=== PATIENT | male | born 1960 | race African-American/Black ===

== ENCOUNTER 2018-03-24 19:17 | Inpatient (IN) | payer OTHER ==
[~2018-03-24] VITALS: Ht 180.3 cm; Wt 70.1 kg
[~2018-03-24 19:17] MED LIST: ACET325T9 PO; AMLO10TA4 PO; FLUO20CA8 PO; FOLI1TAB16 PO; LABE200T24 PO; NAPR-514 PO; NAPR375T5 PO; OLAN1CAP9 PO; OLAN20TA3 PO; THIA100T57 PO
[2018-03-24] MEDS ORDERED: MULTIVIT INFUSN,ADULT 4,VIT K 10 ML, THIAMINE 100 MG, FOLIC ACID 1 MG in IV NORMAL SALI... IV ONE (20:00)
[2018-03-24 20:29] LABS: BASO % 1 % (0-3); EOS % 1 % (0-3); HEMATOCRIT 36.3 % (39.0-53.0); HEMOGLOBIN 12.7 g/dL (13.0-17.5); LYMPH # 1.6 x10^3/uL (1.0-4.8); LYMPH % 22 % (24-48); MEAN CORPUSCULAR HEMOGLOBIN 36 pg (25-35); MEAN CORPUSCULAR HGB CONC 35 g/dL (31-37); MEAN CORPUSCULAR VOLUME 102 fL (79-100); MONO # 0.5 x10^3/uL (0.0-1.1); MONO % 6 % (0-9); NEUT # 5.1 x10^3uL (1.8-7.7); NEUT % 71 % (31-73); PLATELET COUNT 353 x10^3/uL (140-400); RED BLOOD COUNT 3.56 x10^6/uL (4.30-5.70); RED CELL DISTRIBUTION WIDTH 13.2 % (11.5-14.5); WHITE BLOOD COUNT 7.2 x10^3/uL (4.0-11.0)
[2018-03-24 21:58] LABS: CALCIUM 9.3 mg/dL (8.5-10.1); CREATININE 1.3 mg/dL (0.7-1.3); GFR 69.1; POTASSIUM 4.5 mmol/L (3.5-5.1)
[2018-03-24 22:05] LABS: ALBUMIN 3.3 g/dL (3.4-5.0); ALBUMIN/GLOBULIN RATIO 0.9 (1.0-1.7); MAGNESIUM 1.6 mg/dL (1.8-2.4); TOTAL BILIRUBIN 0.4 mg/dL (0.2-1.0); TOTAL PROTEIN 7.1 g/dL (6.4-8.2)
[2018-03-24 23:42] LABS: BILIRUBIN,URINE NEGATIVE (NEG); CLARITY,URINE CLEAR; COLOR,URINE YELLOW; NITRITE,URINE NEGATIVE (NEG); PH,URINE 7.5; PROTEIN,URINE NEGATIVE (NEG-TRACE)
--- NOTE | 2018-03-24 23:47 | PHYS DOC ---
Past Medical History Past Medical History: COPD, Depression, Hypertension Additional Past Medical Histor: TBI Past Surgical History: No Surgical History, Other Additional Past Surgical Histo: BRAIN SURGERY Alcohol Use: Heavy Drug Use: None, Cocaine, Marijuana, Other Adult General Chief Complaint Chief Complaint: ALCOHOL INTOXICATION HPI HPI Patient is a 57 year old M who presents via EMS. EMS reports patient was found passed out in front of the liquor store. He has vomit on his shirt. No able to answer questions at this time. He was able to move from the cot onto the ER bed independently. Review of Systems Review of Systems Respiratory: Denies cough or shortness of breath [] Cardiovascular: Mild chest pain GI: Denies abdominal pain, nausea, vomiting Musculoskeletal: Denies back pain or joint pain [] Integument: Denies rash or skin lesions [] Neurologic: Denies headache, focal weakness or sensory changes [] All other systems were reviewed and found to be within normal limits, except as documented in this note. Current Medications Current Medications Current Medications Medications (Trade) Dose Ordered Sig/Beverly Start Time Stop Time Status Last Admin Dose Admin Multivitamins 10 ml/Thiamine HCl 100 mg/Folic Acid 1 mg/Sodium Chloride 1,011.2 ml @ 1,000 mls/ hr 1X ONCE 03/24/18 20:00 03/24/18 21:00 DC 03/24/18 20:05 1,000 MLS/HR Allergies Allergies Allergies Coded Allergies Type Severity Reaction Last Updated Verified No Known Drug Allergies 12/24/14 No Physical Exam Physical Exam Constitutional: Well developed, well nourished, no acute distress, non-toxic appearance. [] HENT: Normocephalic, atraumatic Eyes: PERRLA, EOMI, conjunctiva normal, no discharge. [] Neck: Normal range of motion, no tenderness, supple, no stridor. [] Cardiovascular:Heart rate regular rhythm, no murmur [] Lungs & Thorax: Bilateral breath sounds clear to auscultation [] Skin: Warm, dry, no erythema, no rash. [] Neurologic: Alert and oriented X 3, normal motor function, normal sensory function, no focal deficits noted. [] Psychologic: Affect normal, judgement normal, mood normal. [] Current Patient Data Vital Signs Vital Signs Date Time Temp Pulse Resp B/P (MAP) Pulse Ox O2 Delivery O2 Flow Rate FiO2 03/24/18 19:30 97.9 90 20 104/66 (79) 96 Room Air 97.9 Lab Values Laboratory Tests Test 03/24/18 20:15 03/24/18 20:45 03/24/18 21:20 03/24/18 23:30 White Blood Count 7.2 x10^3/uL (4.0-11.0) Red Blood Count 3.56 x10^6/uL (4.30-5.70) L Hemoglobin 12.7 g/dL (13.0-17.5) L Hematocrit 36.3 % (39.0-53.0) L Mean Corpuscular Volume 102 fL (79-100) H Mean Corpuscular Hemoglobin 36 pg (25-35) H Mean Corpuscular Hemoglobin Concent 35 g/dL (31-37) Red Cell Distribution Width 13.2 % (11.5-14.5) Platelet Count 353 x10^3/uL (140-400) Neutrophils (%) (Auto) 71 % (31-73) Lymphocytes (%) (Auto) 22 % (24-48) L Monocytes (%) (Auto) 6 % (0-9) Eosinophils (%) (Auto) 1 % (0-3) Basophils (%) (Auto) 1 % (0-3) Neutrophils # (Auto) 5.1 x10^3uL (1.8-7.7) Lymphocytes # (Auto) 1.6 x10^3/uL (1.0-4.8) Monocytes # (Auto) 0.5 x10^3/uL (0.0-1.1) Eosinophils # (Auto) 0.0 x10^3/uL (0.0-0.7) Basophils # (Auto) 0.0 x10^3/uL (0.0-0.2) Lactic Acid Level 2.6 mmol/L (0.4-2.0) H Sodium Level 139 mmol/L (136-145) Potassium Level 4.5 mmol/L (3.5-5.1) Chloride Level 103 mmol/L (98-107) Carbon Dioxide Level 31 mmol/L (21-32) Anion Gap 5 (6-14) L Blood Urea Nitrogen 15 mg/dL (8-26) Creatinine 1.3 mg/dL (0.7-1.3) Estimated GFR (Cockcroft-Gault) 69.1 BUN/Creatinine Ratio 12 (6-20) Glucose Level 136 mg/dL (70-99) H Calcium Level 9.3 mg/dL (8.5-10.1) Magnesium Level 1.6 mg/dL (1.8-2.4) L Total Bilirubin 0.4 mg/dL (0.2-1.0) Aspartate Amino Transferase (AST) 48 U/L (15-37) H Alanine Aminotransferase (ALT) 73 U/L (16-63) H Alkaline Phosphatase 53 U/L (46-116) Total Protein 7.1 g/dL (6.4-8.2) Albumin 3.3 g/dL (3.4-5.0) L Albumin/Globulin Ratio 0.9 (1.0-1.7) L Ethyl Alcohol Level < 10 mg/dL (0-10) Urine Collection Type Unknown Urine Color Yellow Urine Clarity Clear Urine pH 7.5 Urine Specific [place] 1.010 Urine Protein Negative mg/dL (NEG-TRACE) Urine Glucose (UA) Negative mg/dL (NEG) Urine Ketones (Stick) Negative mg/dL (NEG) Urine Blood Negative (NEG) Urine Nitrite Negative (NEG) Urine Bilirubin Negative (NEG) Urine Urobilinogen Dipstick 1.0 mg/dL (0.2 mg/dL) Urine Leukocyte Esterase Negative (NEG) Urine RBC 0 /HPF (0-2) Urine WBC Rare /HPF (0-4) Urine Squamous Epithelial Cells Occ /LPF Urine Bacteria 0 /HPF (0-FEW) Urine Mucus Slight /LPF Urine Opiates Screen Neg (NEG) Urine Methadone Screen Neg (NEG) Urine Barbiturates Neg (NEG) Urine Phencyclidine Screen Neg (NEG) Urine Amphetamine/Methamphetamine Neg (NEG) Urine Benzodiazepines Screen Neg (NEG) Urine Cocaine Screen Neg (NEG) Urine Cannabinoids Screen Neg (NEG) Urine Ethyl Alcohol Neg (NEG) Laboratory Tests 03/24/18 20:15 Laboratory Tests 03/24/18 21:20 EKG EKG NSR at 86bpm with occasional PVCs, NO ST elevation, Radiology/Procedures Radiology/Procedures PATIENT: CONY WHITTINGTON EACCOUNT: [id number]#: [id number] : 1960 LOCATION: ER AGE: 57 SEX: M EXAM STATUS: REG ER ORD. PHYSICIAN: NELLIE SILVERMAN APRN REASON: altered mental status PROCEDURE: CT HEAD WO CONTRAST CT Head W/O Contrast: History: AMS ETOH PT STATES PREV BRAIN ANEURYSM PREV SENT Comparison: none Axial images were obtained without contrast. There is moderate diffuse atrophy. There is no mass effect, extraaxial fluid collections or hydrocephalus. There is no focal loss of cline-white matter distinction to suggest acute ischemia, i.e. stroke. There is a depressed fracture of the left zygomatic arch. There is multiple old wan holes bilaterally. Impression: 1. Moderate diffuse cerebral and cerebellar atrophy is advanced for the patient's age but was seen previously. 2. Depressed fracture of the zygomatic arch on the left was not seen previously and appears acute. RS Compliance Statement: One or more of the following individualized dose reduction techniques were utilized for this examination: 1. Automated exposure control 2. Adjustment of the mA and/or kV according to patient size 3. Use of iterative reconstruction technique Electronically signed by: David Corcoran III, MD (03/25/2018 12:00 AM) [facility] DICTATED and SIGNED BY: DAVID CORCORAN III, MD DATE: 03/24/18 9783 [] CXR -- no acute findings Course & Med Decision Making Course & Med Decision Making Pertinent Labs and Imaging studies reviewed. (See chart for details) d/w Dr. Lei, accepts admission. Plan: admit Dragon Disclaimer Dragon Disclaimer This electronic medical record was generated, in whole or in part, using a voice recognition dictation system. Departure Departure Referrals: NO PCP (PCP) NELLIE SILVERMAN APRN Mar 24, 2018 23:47 GUILLAUME ESCOTO DO Mar 25, 2018 01:06
[2018-03-24 23:48] LABS: BARBITURATES NEG (NEG); BENZODIAZEPINES NEG (NEG); CANNABINOIDS NEG (NEG); COCAINE NEG (NEG); METHADONE NEG (NEG); OPIATES NEG (NEG); PHENCYCLIDINE NEG (NEG)
[2018-03-24 23:49] LABS: RBC,URINE 0 /HPF (0-2); WBC,URINE RARE /HPF (0-4)
[2018-03-24 23:50] LABS: BACTERIA,URINE 0 /HPF (0-FEW); SQUAMOUS EPITHELIAL CELL,UR OCC /LPF
[2018-03-24 23:51] LABS: AMPHETAMINE/METHAMPHETAMINE NEG (NEG)
[2018-03-25] VITALS (7 sets, daily range): BP systolic 133–189; BP diastolic 66–94
--- NOTE | 2018-03-25 00:04 | RAD ---
CT Head W/O Contrast: History: AMS ETOH PT STATES PREV BRAIN ANEURYSM PREV SENT Comparison: none Axial images were obtained without contrast. There is moderate diffuse atrophy. There is no mass effect, extraaxial fluid collections or hydrocephalus. There is no focal loss of cline-white matter distinction to suggest acute ischemia, i.e. stroke. There is a depressed fracture of the left zygomatic arch. There is multiple old wan holes bilaterally. Impression: 1. Moderate diffuse cerebral and cerebellar atrophy is advanced for the patient's age but was seen previously. 2. Depressed fracture of the zygomatic arch on the left was not seen previously and appears acute. PQRS Compliance Statement: One or more of the following individualized dose reduction techniques were utilized for this examination: 1. Automated exposure control 2. Adjustment of the mA and/or kV according to patient size 3. Use of iterative reconstruction technique Electronically signed by: Sam Prado III, MD (03/25/2018 12:00 AM) [facility]
[2018-03-25] MEDS ORDERED: ONDANSETRON PF 4 MG/2 ML VIAL. IV PRN (00:30)
[2018-03-25] MEDS ORDERED: TRAZ-86 PO (02:01)
[2018-03-25] MEDS ORDERED: NICO1PAT21 TP (02:02)
--- NOTE | 2018-03-25 07:07 | EKG ---
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
--- NOTE | 2018-03-25 07:47 | RAD ---
Indication:soa TECHNIQUE:Portable AP chest X-ray COMPARISON:12/24/2014 FINDINGS: Heart is normal in size. Lungs are clear. No pneumothorax or pleural effusion. Right shoulder joint arthritis. Otherwise, visualized bony thorax within normal limits. IMPRESSION: No acute cardiopulmonary process. Electronically signed by: Kory Giron DO (03/25/2018 7:44 AM) [facility]
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
--- NOTE | 2018-03-25 11:34 | PDOC2 ---
CONSULT Date of Consult Date of Consult DATE: 03/25/18 TIME: 11:33 Reason for Consult Reason for Consult: Syncope Referring Physician Referring Physician: Dr. Davis Identification/Chief Complaint Chief Complaint Syncope Source Source: Patient History of Present Illness Reason for Visit: 57-year-old male with history of heavy alcohol abuse apparently was found passed out with vomit undershirt outside liquor store. He complained of intermittent episodes of atypical retrosternal chest pain that appears to be GI etiology. He denied any orthopnea/PND, or palpitations. Past Medical History Cardiovascular: HTN Pulmonary: COPD CENTRAL NERVOUS SYSTEM: Other GI: No pertinent hx Heme/Onc: No pertinent hx Hepatobiliary: Hep A/B/C Psych: Anxiety, Depression Musculoskeletal: Osteoarthritis Rheumatologic: No pertinent hx Infectious disease: No pertinent hx Renal/: No pertinent hx Endocrine: No pertinent hx Past Surgical History Past Surgical History: Other Family History Family History: Coronary Artery Disease Social History ALCOHOL: heavy Drugs: Cocaine Lives: Alone Domestic Violence: Neg Current Problem List Problem List Problems Medical Problems: (1) Altered mental status Status: Acute Current Medications Current Medications Current Medications Multivitamins 10 ml/Thiamine HCl 100 mg/Folic Acid 1 mg/Sodium Chloride 1,011.2 ml @ 1,000 mls/ hr 1X ONCE IV Last administered on 03/24/18at 20:05; Start at 20:00; Stop 03/24/18 at 21:00; Status DC Ondansetron HCl (Zofran) 4 mg PRN Q8HRS PRN IV NAUSEA/VOMITING 1ST CHOICE; Start 03/25/18 at 00:30; Stop 03/26/18 at 00:29 Acetaminophen (Tylenol) 650 mg PRN Q4HRS PRN PO FEVER; Start 03/25/18 at 00:30 ; Stop 03/26/18 at 00:29 Amlodipine Besylate (Norvasc) 10 mg DAILY PO ; Start 03/25/18 at 11:30 Fluoxetine HCl (PROzac) 20 mg DAILY PO ; Start 03/25/18 at 11:30 Folic Acid (Folic Acid) 1 mg DAILY PO ; Start 03/25/18 at 11:30 Trazodone HCl (Desyrel) 100 mg PRN QHS PRN PO INSOMNIA; Start 03/25/18 at 11:15 Labetalol HCl (Trandate) 200 mg BID PO ; Start 03/25/18 at 11:30 Naproxen (Naprosyn) 500 mg PRN BID PRN PO INFLAMMATION/PAIN; Start 03/25/18 at 11:30 Nicotine (Nicoderm Cq 21mg) 1 patch DAILY TD ; Start 03/25/18 at 11:30 Olanzapine (ZyPREXA) 20 mg QHS PO ; Start 03/25/18 at 21:00 Thiamine Mononitrate (Vitamin B-1) 100 mg DAILY PO ; Start 03/25/18 at 11:30 Active Scripts Active Naproxen 500 Mg Tablet 1 Tab PO BID PRN Vitamin B-1 (Thiamine Hcl) 100 Mg Tablet 100 Mg PO DAILY Trandate (Labetalol Hcl) 200 Mg Tablet 200 Mg PO BID 30 Days Folic Acid 1 Mg Tablet 1 Mg PO DAILY Norvasc (Amlodipine Besylate) 10 Mg Tablet 10 Mg PO DAILY 30 Days Reported NICODERM CQ 21mg (Nicotine) 1 Each Patch.td24 1 Patch TP DAILY Trazodone Hcl 100 Mg Tablet 1 Tab PO PRN QHS PRN Zyprexa (Olanzapine) 20 Mg Tablet 1 Tab PO QHS Fluoxetine Hcl 20 Mg Capsule 1 Cap PO DAILY Symbyax 6-50 Mg Capsule (Olanzapine/Fluoxetine Hcl) 1 Each Capsule 1 Each PO Allergies Allergies: Coded Allergies: No Known Drug Allergies (Unverified , 12/24/14) ROS PSYCHOLOGICAL ROS: No: Hallucinations Eyes: No Loss of vision HEENT: No: Epistaxis Respiratory: No: Hemoptysis Cardiovascular: yes Chest Pain Gastrointestinal: No Diarrhea Genitourinary: No Hematuria Neurological: No Seizures Skin: No Rash Physical Exam General: Alert, Oriented X3 HEENT: Atraumatic, PERRLA Lungs: Clear to auscultation Heart: Regular rate Abdomen: Soft Extremities: No edema Psych/Mental Status: Mood NL Vitals VITALS Vital Signs Date Time Temp Pulse Resp B/P (MAP) Pulse Ox O2 Delivery O2 Flow Rate FiO2 03/25/18 07:00 98.4 95 17 155/84 (107) 95 Room Air 98.4 Labs Labs Laboratory Tests Test 03/24/18 20:15 03/24/18 20:45 03/24/18 21:20 03/24/18 23:30 White Blood Count 7.2 x10^3/uL (4.0-11.0) Red Blood Count 3.56 x10^6/uL (4.30-5.70) Hemoglobin 12.7 g/dL (13.0-17.5) Hematocrit 36.3 % (39.0-53.0) Mean Corpuscular Volume 102 fL (79-100) Mean Corpuscular Hemoglobin 36 pg (25-35) Mean Corpuscular Hemoglobin Concent 35 g/dL (31-37) Red Cell Distribution Width 13.2 % (11.5-14.5) Platelet Count 353 x10^3/uL (140-400) Neutrophils (%) (Auto) 71 % (31-73) Lymphocytes (%) (Auto) 22 % (24-48) Monocytes (%) (Auto) 6 % (0-9) Eosinophils (%) (Auto) 1 % (0-3) Basophils (%) (Auto) 1 % (0-3) Neutrophils # (Auto) 5.1 x10^3uL (1.8-7.7) Lymphocytes # (Auto) 1.6 x10^3/uL (1.0-4.8) Monocytes # (Auto) 0.5 x10^3/uL (0.0-1.1) Eosinophils # (Auto) 0.0 x10^3/uL (0.0-0.7) Basophils # (Auto) 0.0 x10^3/uL (0.0-0.2) Lactic Acid Level 2.6 mmol/L (0.4-2.0) Sodium Level 139 mmol/L (136-145) Potassium Level 4.5 mmol/L (3.5-5.1) Chloride Level 103 mmol/L (98-107) Carbon Dioxide Level 31 mmol/L (21-32) Anion Gap 5 (6-14) Blood Urea Nitrogen 15 mg/dL (8-26) Creatinine 1.3 mg/dL (0.7-1.3) Estimated GFR (Cockcroft-Gault) 69.1 BUN/Creatinine Ratio 12 (6-20) Glucose Level 136 mg/dL (70-99) Calcium Level 9.3 mg/dL (8.5-10.1) Magnesium Level 1.6 mg/dL (1.8-2.4) Total Bilirubin 0.4 mg/dL (0.2-1.0) Aspartate Amino Transf (AST/SGOT) 48 U/L (15-37) Alanine Aminotransferase (ALT/SGPT) 73 U/L (16-63) Alkaline Phosphatase 53 U/L (46-116) Total Protein 7.1 g/dL (6.4-8.2) Albumin 3.3 g/dL (3.4-5.0) Albumin/Globulin Ratio 0.9 (1.0-1.7) Ethyl Alcohol Level < 10 mg/dL (0-10) Urine Collection Type Unknown Urine Color Yellow Urine Clarity Clear Urine pH 7.5 Urine Specific [place] 1.010 Urine Protein Negative mg/dL (NEG-TRACE) Urine Glucose (UA) Negative mg/dL (NEG) Urine Ketones (Stick) Negative mg/dL (NEG) Urine Blood Negative (NEG) Urine Nitrite Negative (NEG) Urine Bilirubin Negative (NEG) Urine Urobilinogen Dipstick 1.0 mg/dL (0.2 mg/dL) Urine Leukocyte Esterase Negative (NEG) Urine RBC 0 /HPF (0-2) Urine WBC Rare /HPF (0-4) Urine Squamous Epithelial Cells Occ /LPF Urine Bacteria 0 /HPF (0-FEW) Urine Mucus Slight /LPF Urine Opiates Screen Neg (NEG) Urine Methadone Screen Neg (NEG) Urine Barbiturates Neg (NEG) Urine Phencyclidine Screen Neg (NEG) Urine Amphetamine/Methamphetamine Neg (NEG) Urine Benzodiazepines Screen Neg (NEG) Urine Cocaine Screen Neg (NEG) Urine Cannabinoids Screen Neg (NEG) Urine Ethyl Alcohol Neg (NEG) Laboratory Tests Test 03/24/18 20:15 03/24/18 20:45 03/24/18 21:20 03/24/18 23:30 White Blood Count 7.2 x10^3/uL (4.0-11.0) Red Blood Count 3.56 x10^6/uL (4.30-5.70) Hemoglobin 12.7 g/dL (13.0-17.5) Hematocrit 36.3 % (39.0-53.0) Mean Corpuscular Volume 102 fL (79-100) Mean Corpuscular Hemoglobin 36 pg (25-35) Mean Corpuscular Hemoglobin Concent 35 g/dL (31-37) Red Cell Distribution Width 13.2 % (11.5-14.5) Platelet Count 353 x10^3/uL (140-400) Neutrophils (%) (Auto) 71 % (31-73) Lymphocytes (%) (Auto) 22 % (24-48) Monocytes (%) (Auto) 6 % (0-9) Eosinophils (%) (Auto) 1 % (0-3) Basophils (%) (Auto) 1 % (0-3) Neutrophils # (Auto) 5.1 x10^3uL (1.8-7.7) Lymphocytes # (Auto) 1.6 x10^3/uL (1.0-4.8) Monocytes # (Auto) 0.5 x10^3/uL (0.0-1.1) Eosinophils # (Auto) 0.0 x10^3/uL (0.0-0.7) Basophils # (Auto) 0.0 x10^3/uL (0.0-0.2) Lactic Acid Level 2.6 mmol/L (0.4-2.0) Sodium Level 139 mmol/L (136-145) Potassium Level 4.5 mmol/L (3.5-5.1) Chloride Level 103 mmol/L (98-107) Carbon Dioxide Level 31 mmol/L (21-32) Anion Gap 5 (6-14) Blood Urea Nitrogen 15 mg/dL (8-26) Creatinine 1.3 mg/dL (0.7-1.3) Estimated GFR (Cockcroft-Gault) 69.1 BUN/Creatinine Ratio 12 (6-20) Glucose Level 136 mg/dL (70-99) Calcium Level 9.3 mg/dL (8.5-10.1) Magnesium Level 1.6 mg/dL (1.8-2.4) Total Bilirubin 0.4 mg/dL (0.2-1.0) Aspartate Amino Transf (AST/SGOT) 48 U/L (15-37) Alanine Aminotransferase (ALT/SGPT) 73 U/L (16-63) Alkaline Phosphatase 53 U/L (46-116) Total Protein 7.1 g/dL (6.4-8.2) Albumin 3.3 g/dL (3.4-5.0) Albumin/Globulin Ratio 0.9 (1.0-1.7) Ethyl Alcohol Level < 10 mg/dL (0-10) Urine Collection Type Unknown Urine Color Yellow Urine Clarity Clear Urine pH 7.5 Urine Specific [place] 1.010 Urine Protein Negative mg/dL (NEG-TRACE) Urine Glucose (UA) Negative mg/dL (NEG) Urine Ketones (Stick) Negative mg/dL (NEG) Urine Blood Negative (NEG) Urine Nitrite Negative (NEG) Urine Bilirubin Negative (NEG) Urine Urobilinogen Dipstick 1.0 mg/dL (0.2 mg/dL) Urine Leukocyte Esterase Negative (NEG) Urine RBC 0 /HPF (0-2) Urine WBC Rare /HPF (0-4) Urine Squamous Epithelial Cells Occ /LPF Urine Bacteria 0 /HPF (0-FEW) Urine Mucus Slight /LPF Urine Opiates Screen Neg (NEG) Urine Methadone Screen Neg (NEG) Urine Barbiturates Neg (NEG) Urine Phencyclidine Screen Neg (NEG) Urine Amphetamine/Methamphetamine Neg (NEG) Urine Benzodiazepines Screen Neg (NEG) Urine Cocaine Screen Neg (NEG) Urine Cannabinoids Screen Neg (NEG) Urine Ethyl Alcohol Neg (NEG) Assessment/Plan Assessment/Plan 1. Syncope most probably alcohol blackout. Telemetry did not show any significant arrhythmias. 2-D echo on 2014 showed normal LV systolic function. Plan for repeating 2-D echocardiogram as an outpatient to rule out structural abnormalities. 2. Chest pain with atypical features, most probably GI etiology. Myocardial infarction ruled out. We will consider ischemic evaluation as an outpatient. 3. Alcohol abuse/intoxication on presentation. Monitor for withdrawal 4. Hypertension: Better controlled since admission 5. Hypomagnesemia: Replace Thank you for your consultation JULISSA PASTOR MD Mar 25, 2018 11:34
[2018-03-25] MEDS ORDERED: IV NORMAL SALINE 1000ML BAG 1,000 ML IV ONE (12:00)
[2018-03-25] MEDS: FOLIC ACID 1 MG TABLET. PO SCH (12:04)
[2018-03-25] MEDS: LABETALOL HCL 200 MG TABLET PO SCH ×2 (12:05→20:43)
[2018-03-25] MEDS: THIAMINE 100 MG TABLET. PO SCH (12:06)
[2018-03-25] MEDS: amLODIPine BESYLATE 10 MG TABLET PO SCH (12:06)
[2018-03-25] MEDS: MAGNESIUM OXIDE 400 MG TABLET PO SCH ×2 (12:06→20:42)
[2018-03-25] MEDS: FLUoxetine HCL 20 MG CAPSULE PO SCH (12:06)
[2018-03-25] MEDS: PANTOPRAZOLE 40 MG TABLET.DR. PO SCH (12:06)
[2018-03-25] MEDS: ACETAMINOPHEN 325 MG TABLET. PO PRN ×2 (12:07→18:54)
[2018-03-25] MEDS: NICOTINE 21MG PATCH. TD SCH (12:07)
[2018-03-25] MEDS: LORazepam 1 MG TABLET PO SCH ×2 (17:41→23:30)
[2018-03-25] MEDS: OLANZapine 5 MG TABLET PO SCH (20:42)
[2018-03-26 03:30] VITALS: BP 126/79
[2018-03-26] MEDS: LORazepam 1 MG TABLET PO SCH ×4 (05:43→23:38)
[2018-03-26 07:00] VITALS: BP 147/87
[2018-03-26 07:02] LABS: HEMATOCRIT 36.3 % (39.0-53.0); HEMOGLOBIN 12.5 g/dL (13.0-17.5); RED BLOOD COUNT 3.53 x10^6/uL (4.30-5.70); RED CELL DISTRIBUTION WIDTH 13.7 % (11.5-14.5); WHITE BLOOD COUNT 8.4 x10^3/uL (4.0-11.0)
[2018-03-26 08:01] LABS: ALBUMIN 3.2 g/dL (3.4-5.0); ALBUMIN/GLOBULIN RATIO 0.8 (1.0-1.7); CALCIUM 8.8 mg/dL (8.5-10.1); GFR 93.5; POTASSIUM 3.6 mmol/L (3.5-5.1); TOTAL BILIRUBIN 0.5 mg/dL (0.2-1.0)
[2018-03-26] MEDS: NICOTINE 21MG PATCH. TD SCH (09:27)
[2018-03-26] MEDS: MAGNESIUM OXIDE 400 MG TABLET PO SCH ×2 (09:27→20:59)
[2018-03-26] MEDS: PANTOPRAZOLE 40 MG TABLET.DR. PO SCH (09:27)
[2018-03-26] MEDS: FLUoxetine HCL 20 MG CAPSULE PO SCH (09:27)
[2018-03-26] MEDS: LABETALOL HCL 200 MG TABLET PO SCH ×2 (09:27→21:00)
[2018-03-26] MEDS: THIAMINE 100 MG TABLET. PO SCH (09:27)
[2018-03-26] MEDS: amLODIPine BESYLATE 10 MG TABLET PO SCH (09:28)
[2018-03-26] MEDS: FOLIC ACID 1 MG TABLET. PO SCH (09:28)
[2018-03-26 11:00] VITALS: BP 107/68
--- NOTE | 2018-03-26 12:21 | PDOC ---
PROGRESS NOTES Subjective Subjective Feels better today. Objective Objective Vital Signs Date Time Temp Pulse Resp B/P (MAP) Pulse Ox O2 Delivery O2 Flow Rate FiO2 03/26/18 09:28 76 147/87 03/26/18 07:00 97.7 18 96 Room Air 97.7 Intake and Output 03/26/18 07:00 Intake Total 1020 ml Output Total 2050 ml Balance -1030 ml Intake Oral 1020 ml Output Urine Total 1500 ml Urine/Stool Mix 550 ml Physical Exam Abdomen: Soft Heart: Regular rate Extremities: No edema General: Alert, Oriented X3 HEENT: Atraumatic, PERRLA Lungs: Clear to auscultation MUSCULOSKELETAL: No joint tenderness Psych/Mental Status: Mood NL Assessment Assessment 1. Syncope most probably alcohol blackout. Telemetry did not show any significant arrhythmias. 2-D echo on 2014 showed normal LV systolic function. Plan for repeating 2-D echocardiogram as an outpatient to rule out structural abnormalities. 2. Chest pain with atypical features, most probably GI etiology. Myocardial infarction ruled out. We will consider ischemic evaluation as an outpatient. 3. Alcohol abuse/intoxication on presentation. Monitor for withdrawal 4. Hypertension: Better controlled since admission 5. Hypomagnesemia: Replaced Plan Plan of Care Problems Medical Problems: (1) Altered mental status Status: Acute Comment Review of Relevant I have reviewed the following items robby (where applicable) has been applied. Labs Laboratory Tests Test 03/26/18 05:35 03/26/18 06:05 Erythrocyte Sedimentation Rate 5 (0-15) Sodium Level 142 mmol/L (136-145) Potassium Level 3.6 mmol/L (3.5-5.1) Chloride Level 106 mmol/L (98-107) Carbon Dioxide Level 25 mmol/L (21-32) Anion Gap 11 (6-14) Blood Urea Nitrogen 12 mg/dL (8-26) Creatinine 1.0 mg/dL (0.7-1.3) Estimated GFR (Cockcroft-Gault) 93.5 BUN/Creatinine Ratio 12 (6-20) Glucose Level 93 mg/dL (70-99) Calcium Level 8.8 mg/dL (8.5-10.1) Total Bilirubin 0.5 mg/dL (0.2-1.0) Aspartate Amino Transf (AST/SGOT) 52 U/L (15-37) Alanine Aminotransferase (ALT/SGPT) 84 U/L (16-63) Alkaline Phosphatase 60 U/L (46-116) Total Protein 7.0 g/dL (6.4-8.2) Albumin 3.2 g/dL (3.4-5.0) Albumin/Globulin Ratio 0.8 (1.0-1.7) White Blood Count 8.4 x10^3/uL (4.0-11.0) Red Blood Count 3.53 x10^6/uL (4.30-5.70) Hemoglobin 12.5 g/dL (13.0-17.5) Hematocrit 36.3 % (39.0-53.0) Mean Corpuscular Volume 103 fL (79-100) Mean Corpuscular Hemoglobin 35 pg (25-35) Mean Corpuscular Hemoglobin Concent 34 g/dL (31-37) Red Cell Distribution Width 13.7 % (11.5-14.5) Platelet Count 356 x10^3/uL (140-400) Medications Current Medications Lorazepam (Ativan) 2 mg Q6H PO Last administered on 03/26/18at 11:55; Start at 17:30; Stop 03/26/18 at 23:31 Magnesium Oxide (Magnesium Oxide) 400 mg BID PO Last administered on 03/26/18 09:27; Start 03/25/18 at 12:30 Olanzapine (ZyPREXA) 20 mg QHS PO Last administered on 03/25/18at 20:42; Start 03/25/18 at 21:00 Pantoprazole Sodium (Protonix) 40 mg DAILYAC PO Last administered on 03/26/18 09:27; Start 03/25/18 at 12:30 Vitals/I & O Vital Sign - Last 24 Hours 03/25/18 03/25/18 03/25/18 03/25/18 15:00 19:00 20:00 20:43 Temp 97.6 98.8 97.6 98.8 Pulse 40 84 40 Resp 17 18 B/P (MAP) 160/71 (100) 133/84 (100) 160/71 Pulse Ox 97 95 O2 Delivery Room Air Room Air 03/25/18 03/26/18 03/26/18 03/26/18 23:00 03:30 07:00 09:27 Temp 95.6 97.7 97.7 95.6 97.7 97.7 Pulse 87 76 76 76 Resp 18 B/P (MAP) 143/94 (110) 126/79 (95) 147/87 (107) 147/87 Pulse Ox 97 93 96 O2 Delivery Room Air Room Air 03/26/18 09:28 Pulse 76 B/P (MAP) 147/87 Intake and Output 03/25/18 03/25/18 03/26/18 15:00 23:00 07:00 Intake Total 650 ml 370 ml Output Total 550 ml 1500 ml Balance 100 ml -1130 ml JULISSA PASTOR MD Mar 26, 2018 12:21
--- NOTE | 2018-03-26 14:58 | PDOC ---
PROGRESS NOTES Chief Complaint Chief Complaint 1-mental status change and ? syncope, likely ETOH intoxication 2-hypomagnesemia replaced 3-lactic acidosis hydrated 4-alcoholic liver disease/ hepatitis 5-depression 6-HTN 7-hx brain aneurysm 8-COPD 9- smoker 10-Substance abuse 11- Depressed fracture of the zygomatic arch on the left was not seen previously and appears acute. need to see maxillary surgeon as out patient History of Present Illness History of Present Illness feels much better, has been up to bathroom, will ask pt to evaluate safety to go home , discharge in AM is likely pt agree with plan Vitals Vitals Vital Signs Date Time Temp Pulse Resp B/P (MAP) Pulse Ox O2 Delivery O2 Flow Rate FiO2 03/26/18 11:00 97.9 86 18 107/68 (81) 94 Room Air 97.9 Physical Exam General: Alert, Oriented X3 Heart: Regular rate Lungs: Clear Abdomen: Soft Extremities: No edema Labs LABS Laboratory Tests Test 03/26/18 05:35 03/26/18 06:05 Erythrocyte Sedimentation Rate 5 (0-15) Sodium Level 142 mmol/L (136-145) Potassium Level 3.6 mmol/L (3.5-5.1) Chloride Level 106 mmol/L (98-107) Carbon Dioxide Level 25 mmol/L (21-32) Anion Gap 11 (6-14) Blood Urea Nitrogen 12 mg/dL (8-26) Creatinine 1.0 mg/dL (0.7-1.3) Estimated GFR (Cockcroft-Gault) 93.5 BUN/Creatinine Ratio 12 (6-20) Glucose Level 93 mg/dL (70-99) Calcium Level 8.8 mg/dL (8.5-10.1) Total Bilirubin 0.5 mg/dL (0.2-1.0) Aspartate Amino Transf (AST/SGOT) 52 U/L (15-37) Alanine Aminotransferase (ALT/SGPT) 84 U/L (16-63) Alkaline Phosphatase 60 U/L (46-116) Total Protein 7.0 g/dL (6.4-8.2) Albumin 3.2 g/dL (3.4-5.0) Albumin/Globulin Ratio 0.8 (1.0-1.7) White Blood Count 8.4 x10^3/uL (4.0-11.0) Red Blood Count 3.53 x10^6/uL (4.30-5.70) Hemoglobin 12.5 g/dL (13.0-17.5) Hematocrit 36.3 % (39.0-53.0) Mean Corpuscular Volume 103 fL (79-100) Mean Corpuscular Hemoglobin 35 pg (25-35) Mean Corpuscular Hemoglobin Concent 34 g/dL (31-37) Red Cell Distribution Width 13.7 % (11.5-14.5) Platelet Count 356 x10^3/uL (140-400) Assessment and Plan Assessmemt and Plan Problems Medical Problems: (1) Altered mental status Status: Acute Comment Review of Relevant I have reviewed the following items robby (where applicable) has been applied. Labs Laboratory Tests Test 03/24/18 20:15 03/24/18 20:45 03/24/18 21:20 03/24/18 23:30 White Blood Count 7.2 x10^3/uL (4.0-11.0) Red Blood Count 3.56 x10^6/uL (4.30-5.70) Hemoglobin 12.7 g/dL (13.0-17.5) Hematocrit 36.3 % (39.0-53.0) Mean Corpuscular Volume 102 fL (79-100) Mean Corpuscular Hemoglobin 36 pg (25-35) Mean Corpuscular Hemoglobin Concent 35 g/dL (31-37) Red Cell Distribution Width 13.2 % (11.5-14.5) Platelet Count 353 x10^3/uL (140-400) Neutrophils (%) (Auto) 71 % (31-73) Lymphocytes (%) (Auto) 22 % (24-48) Monocytes (%) (Auto) 6 % (0-9) Eosinophils (%) (Auto) 1 % (0-3) Basophils (%) (Auto) 1 % (0-3) Neutrophils # (Auto) 5.1 x10^3uL (1.8-7.7) Lymphocytes # (Auto) 1.6 x10^3/uL (1.0-4.8) Monocytes # (Auto) 0.5 x10^3/uL (0.0-1.1) Eosinophils # (Auto) 0.0 x10^3/uL (0.0-0.7) Basophils # (Auto) 0.0 x10^3/uL (0.0-0.2) Lactic Acid Level 2.6 mmol/L (0.4-2.0) Sodium Level 139 mmol/L (136-145) Potassium Level 4.5 mmol/L (3.5-5.1) Chloride Level 103 mmol/L (98-107) Carbon Dioxide Level 31 mmol/L (21-32) Anion Gap 5 (6-14) Blood Urea Nitrogen 15 mg/dL (8-26) Creatinine 1.3 mg/dL (0.7-1.3) Estimated GFR (Cockcroft-Gault) 69.1 BUN/Creatinine Ratio 12 (6-20) Glucose Level 136 mg/dL (70-99) Calcium Level 9.3 mg/dL (8.5-10.1) Magnesium Level 1.6 mg/dL (1.8-2.4) Total Bilirubin 0.4 mg/dL (0.2-1.0) Aspartate Amino Transf (AST/SGOT) 48 U/L (15-37) Alanine Aminotransferase (ALT/SGPT) 73 U/L (16-63) Alkaline Phosphatase 53 U/L (46-116) Total Protein 7.1 g/dL (6.4-8.2) Albumin 3.3 g/dL (3.4-5.0) Albumin/Globulin Ratio 0.9 (1.0-1.7) Ethyl Alcohol Level < 10 mg/dL (0-10) Urine Collection Type Unknown Urine Color Yellow Urine Clarity Clear Urine pH 7.5 Urine Specific [place] 1.010 Urine Protein Negative mg/dL (NEG-TRACE) Urine Glucose (UA) Negative mg/dL (NEG) Urine Ketones (Stick) Negative mg/dL (NEG) Urine Blood Negative (NEG) Urine Nitrite Negative (NEG) Urine Bilirubin Negative (NEG) Urine Urobilinogen Dipstick 1.0 mg/dL (0.2 mg/dL) Urine Leukocyte Esterase Negative (NEG) Urine RBC 0 /HPF (0-2) Urine WBC Rare /HPF (0-4) Urine Squamous Epithelial Cells Occ /LPF Urine Bacteria 0 /HPF (0-FEW) Urine Mucus Slight /LPF Urine Opiates Screen Neg (NEG) Urine Methadone Screen Neg (NEG) Urine Barbiturates Neg (NEG) Urine Phencyclidine Screen Neg (NEG) Urine Amphetamine/Methamphetamine Neg (NEG) Urine Benzodiazepines Screen Neg (NEG) Urine Cocaine Screen Neg (NEG) Urine Cannabinoids Screen Neg (NEG) Urine Ethyl Alcohol Neg (NEG) Test 03/25/18 11:50 03/26/18 05:35 03/26/18 06:05 Prothrombin Time 13.0 SEC (11.7-14.0) Prothromb Time International Ratio 1.0 (0.8-1.1) Lactic Acid Level 0.8 mmol/L (0.4-2.0) Ammonia 32 mcmol/L (11-34) Erythrocyte Sedimentation Rate 5 (0-15) Sodium Level 142 mmol/L (136-145) Potassium Level 3.6 mmol/L (3.5-5.1) Chloride Level 106 mmol/L (98-107) Carbon Dioxide Level 25 mmol/L (21-32) Anion Gap 11 (6-14) Blood Urea Nitrogen 12 mg/dL (8-26) Creatinine 1.0 mg/dL (0.7-1.3) Estimated GFR (Cockcroft-Gault) 93.5 BUN/Creatinine Ratio 12 (6-20) Glucose Level 93 mg/dL (70-99) Calcium Level 8.8 mg/dL (8.5-10.1) Total Bilirubin 0.5 mg/dL (0.2-1.0) Aspartate Amino Transf (AST/SGOT) 52 U/L (15-37) Alanine Aminotransferase (ALT/SGPT) 84 U/L (16-63) Alkaline Phosphatase 60 U/L (46-116) Total Protein 7.0 g/dL (6.4-8.2) Albumin 3.2 g/dL (3.4-5.0) Albumin/Globulin Ratio 0.8 (1.0-1.7) White Blood Count 8.4 x10^3/uL (4.0-11.0) Red Blood Count 3.53 x10^6/uL (4.30-5.70) Hemoglobin 12.5 g/dL (13.0-17.5) Hematocrit 36.3 % (39.0-53.0) Mean Corpuscular Volume 103 fL (79-100) Mean Corpuscular Hemoglobin 35 pg (25-35) Mean Corpuscular Hemoglobin Concent 34 g/dL (31-37) Red Cell Distribution Width 13.7 % (11.5-14.5) Platelet Count 356 x10^3/uL (140-400) Laboratory Tests Test 03/26/18 05:35 03/26/18 06:05 Erythrocyte Sedimentation Rate 5 (0-15) Sodium Level 142 mmol/L (136-145) Potassium Level 3.6 mmol/L (3.5-5.1) Chloride Level 106 mmol/L (98-107) Carbon Dioxide Level 25 mmol/L (21-32) Anion Gap 11 (6-14) Blood Urea Nitrogen 12 mg/dL (8-26) Creatinine 1.0 mg/dL (0.7-1.3) Estimated GFR (Cockcroft-Gault) 93.5 BUN/Creatinine Ratio 12 (6-20) Glucose Level 93 mg/dL (70-99) Calcium Level 8.8 mg/dL (8.5-10.1) Total Bilirubin 0.5 mg/dL (0.2-1.0) Aspartate Amino Transf (AST/SGOT) 52 U/L (15-37) Alanine Aminotransferase (ALT/SGPT) 84 U/L (16-63) Alkaline Phosphatase 60 U/L (46-116) Total Protein 7.0 g/dL (6.4-8.2) Albumin 3.2 g/dL (3.4-5.0) Albumin/Globulin Ratio 0.8 (1.0-1.7) White Blood Count 8.4 x10^3/uL (4.0-11.0) Red Blood Count 3.53 x10^6/uL (4.30-5.70) Hemoglobin 12.5 g/dL (13.0-17.5) Hematocrit 36.3 % (39.0-53.0) Mean Corpuscular Volume 103 fL (79-100) Mean Corpuscular Hemoglobin 35 pg (25-35) Mean Corpuscular Hemoglobin Concent 34 g/dL (31-37) Red Cell Distribution Width 13.7 % (11.5-14.5) Platelet Count 356 x10^3/uL (140-400) Medications Current Medications Multivitamins 10 ml/Thiamine HCl 100 mg/Folic Acid 1 mg/Sodium Chloride 1,011.2 ml @ 1,000 mls/ hr 1X ONCE IV Last administered on 03/24/18 20:05; Start at 20:00; Stop 03/24/18 at 21:00; Status DC Ondansetron HCl (Zofran) 4 mg PRN Q8HRS PRN IV NAUSEA/VOMITING 1ST CHOICE; Start 03/25/18 at 00:30; Stop 03/26/18 at 00:29; Status DC Acetaminophen (Tylenol) 650 mg PRN Q4HRS PRN PO FEVER Last administered on 03/25 18:54; Start 03/25/18 at 00:30; Stop 03/26/18 at 00:29; Status DC Amlodipine Besylate (Norvasc) 10 mg DAILY PO Last administered on 03/26/18 09: 28; Start 03/25/18 at 11:30 Fluoxetine HCl (PROzac) 20 mg DAILY PO Last administered on 03/26/18 09:27; Start 03/25/18 at 11:30 Folic Acid (Folic Acid) 1 mg DAILY PO Last administered on 03/26/18 09:28; Start 03/25/18 at 11:30 Trazodone HCl (Desyrel) 100 mg PRN QHS PRN PO INSOMNIA; Start 03/25/18 at 11:15 Labetalol HCl (Trandate) 200 mg BID PO Last administered on 03/26/18 09:27; Start 03/25/18 at 11:30 Naproxen (Naprosyn) 500 mg PRN BID PRN PO INFLAMMATION/PAIN; Start 03/25/18 at 11:30 Nicotine (Nicoderm Cq 21mg) 1 patch DAILY TD Last administered on 03/26/18 09: 27; Start 03/25/18 at 11:30 Olanzapine (ZyPREXA) 20 mg QHS PO Last administered on 03/25/18 20:42; Start 03/25/18 at 21:00 Thiamine Mononitrate (Vitamin B-1) 100 mg DAILY PO Last administered on 09:27; Start 03/25/18 at 11:30 Magnesium Oxide (Magnesium Oxide) 400 mg BID PO Last administered on 03/26/18 09:27; Start 03/25/18 at 12:30 Sodium Chloride 1,000 ml @ 1,000 mls/hr 1X ONCE IV Last administered on at 13:39; Start 03/25/18 at 12:00; Stop 03/25/18 at 12:59; Status DC Pantoprazole Sodium (Protonix) 40 mg DAILYAC PO Last administered on 03/26/18at 09:27; Start 03/25/18 at 12:30 Lorazepam (Ativan) 2 mg Q6H PO Last administered on 03/26/18at 11:55; Start at 17:30; Stop 03/26/18 at 23:31 Active Scripts Active Naproxen 500 Mg Tablet 1 Tab PO BID PRN Vitamin B-1 (Thiamine Hcl) 100 Mg Tablet 100 Mg PO DAILY Trandate (Labetalol Hcl) 200 Mg Tablet 200 Mg PO BID 30 Days Folic Acid 1 Mg Tablet 1 Mg PO DAILY Norvasc (Amlodipine Besylate) 10 Mg Tablet 10 Mg PO DAILY 30 Days Reported NICODERM CQ 21mg (Nicotine) 1 Each Patch.td24 1 Patch TP DAILY Trazodone Hcl 100 Mg Tablet 1 Tab PO PRN QHS PRN Zyprexa (Olanzapine) 20 Mg Tablet 1 Tab PO QHS Fluoxetine Hcl 20 Mg Capsule 1 Cap PO DAILY Symbyax 6-50 Mg Capsule (Olanzapine/Fluoxetine Hcl) 1 Each Capsule 1 Each PO Vitals/I & O Vital Sign - Last 24 Hours 03/25/18 03/25/18 03/25/18 03/25/18 15:00 19:00 20:00 20:43 Temp 97.6 98.8 97.6 98.8 Pulse 40 84 40 Resp 17 18 B/P (MAP) 160/71 (100) 133/84 (100) 160/71 Pulse Ox 97 95 O2 Delivery Room Air Room Air 03/25/18 03/26/18 03/26/18 03/26/18 23:00 03:30 07:00 08:00 Temp 95.6 97.7 97.7 95.6 97.7 97.7 Pulse 87 76 76 Resp 18 18 18 B/P (MAP) 143/94 (110) 126/79 (95) 147/87 (107) Pulse Ox 97 93 96 O2 Delivery Room Air Room Air Room Air 03/26/18 03/26/18 03/26/18 09:27 09:28 11:00 Temp 97.9 97.9 Pulse 76 76 86 Resp 18 B/P (MAP) 147/87 147/87 107/68 (81) Pulse Ox 94 O2 Delivery Room Air Intake and Output 03/25/18 03/25/18 03/26/18 15:01 23:01 07:01 Intake Total 650 ml 370 ml Output Total 550 ml 1500 ml Balance 100 ml -1130 ml VINCE HAMILTON MD Mar 26, 2018 14:58
[2018-03-26 15:00] VITALS: BP 106/66
[2018-03-26 19:00] VITALS: BP 120/74
[2018-03-26] MEDS: OLANZapine 5 MG TABLET PO SCH (20:59)
[2018-03-26 22:37] VITALS: BP 147/91
[2018-03-27 02:37] VITALS: BP 131/88
[2018-03-27 04:16] LABS: HEMATOCRIT 40.3 % (39.0-53.0); HEMOGLOBIN 13.8 g/dL (13.0-17.5); RED BLOOD COUNT 3.9 x10^6/uL (4.30-5.70); RED CELL DISTRIBUTION WIDTH 13.2 % (11.5-14.5); WHITE BLOOD COUNT 8.6 x10^3/uL (4.0-11.0)
[2018-03-27 04:41] LABS: ALBUMIN 3.6 g/dL (3.4-5.0); ALBUMIN/GLOBULIN RATIO 0.8 (1.0-1.7); CALCIUM 9.2 mg/dL (8.5-10.1); CREATININE 1.1 mg/dL (0.7-1.3); GFR 83.8; POTASSIUM 3.7 mmol/L (3.5-5.1); TOTAL BILIRUBIN 0.3 mg/dL (0.2-1.0); TOTAL PROTEIN 7.9 g/dL (6.4-8.2)
[2018-03-27 07:00] VITALS: BP 131/87
[2018-03-27] MEDS: PANTOPRAZOLE 40 MG TABLET.DR. PO SCH (09:17)
[2018-03-27] MEDS: FOLIC ACID 1 MG TABLET. PO SCH (09:17)
[2018-03-27] MEDS: THIAMINE 100 MG TABLET. PO SCH (09:17)
[2018-03-27] MEDS: LABETALOL HCL 200 MG TABLET PO SCH ×2 (09:17→21:18)
[2018-03-27] MEDS: NICOTINE 21MG PATCH. TD SCH (09:17)
[2018-03-27] MEDS: FLUoxetine HCL 20 MG CAPSULE PO SCH (09:17)
[2018-03-27] MEDS: amLODIPine BESYLATE 10 MG TABLET PO SCH (09:17)
[2018-03-27] MEDS: MAGNESIUM OXIDE 400 MG TABLET PO SCH ×2 (09:17→21:18)
--- NOTE | 2018-03-27 10:14 | PDOC ---
PROGRESS NOTES Chief Complaint Chief Complaint 1-mental status change and ? syncope, likely ETOH intoxication 2-hypomagnesemia replaced 3-lactic acidosis hydrated 4-alcoholic liver disease/ hepatitis 5-depression 6-HTN 7-hx brain aneurysm 8-COPD 9- smoker 10-Substance abuse 11- Depressed fracture of the zygomatic arch on the left was not seen previously and appears acute. need to see maxillary surgeon as out patient 12 syncope most probably alcohol blackout. Telemetry did not show any significant arrhythmias. 2-D echo on 2014 showed normal LV systolic function. Plan for repeating 2-D echocardiogram as an outpatient to rule out structural abnormalities. 13 Chest pain with atypical features, History of Present Illness History of Present Illness feels much better, has been up to bathroom, will ask pt to evaluate safety to go home , discharge in AM is likely pt agree with plan Vitals Vitals Vital Signs Date Time Temp Pulse Resp B/P (MAP) Pulse Ox O2 Delivery O2 Flow Rate FiO2 03/27/18 09:17 88 131/87 03/27/18 07:00 97.9 20 97 Room Air 97.9 Physical Exam General: Alert, Oriented X3, Cooperative, No acute distress Heart: Regular rate, Normal S1, Normal S2 Lungs: Clear Abdomen: Normal bowel sounds, Soft Extremities: No cyanosis, No edema Labs LABS Laboratory Tests Test 03/27/18 03:15 White Blood Count 8.6 x10^3/uL (4.0-11.0) Red Blood Count 3.90 x10^6/uL (4.30-5.70) Hemoglobin 13.8 g/dL (13.0-17.5) Hematocrit 40.3 % (39.0-53.0) Mean Corpuscular Volume 103 fL (79-100) Mean Corpuscular Hemoglobin 35 pg (25-35) Mean Corpuscular Hemoglobin Concent 34 g/dL (31-37) Red Cell Distribution Width 13.2 % (11.5-14.5) Platelet Count 365 x10^3/uL (140-400) Sodium Level 142 mmol/L (136-145) Potassium Level 3.7 mmol/L (3.5-5.1) Chloride Level 106 mmol/L (98-107) Carbon Dioxide Level 28 mmol/L (21-32) Anion Gap 8 (6-14) Blood Urea Nitrogen 10 mg/dL (8-26) Creatinine 1.1 mg/dL (0.7-1.3) Estimated GFR (Cockcroft-Gault) 83.8 BUN/Creatinine Ratio 9 (6-20) Glucose Level 77 mg/dL (70-99) Calcium Level 9.2 mg/dL (8.5-10.1) Total Bilirubin 0.3 mg/dL (0.2-1.0) Aspartate Amino Transf (AST/SGOT) 62 U/L (15-37) Alanine Aminotransferase (ALT/SGPT) 101 U/L (16-63) Alkaline Phosphatase 93 U/L (46-116) Total Protein 7.9 g/dL (6.4-8.2) Albumin 3.6 g/dL (3.4-5.0) Albumin/Globulin Ratio 0.8 (1.0-1.7) Assessment and Plan Assessmemt and Plan Problems Medical Problems: (1) Altered mental status Status: Acute Comment Review of Relevant I have reviewed the following items robby (where applicable) has been applied. Labs Laboratory Tests Test 03/25/18 11:50 03/26/18 05:35 03/26/18 06:05 03/27/18 03:15 Prothrombin Time 13.0 SEC (11.7-14.0) Prothromb Time International Ratio 1.0 (0.8-1.1) Lactic Acid Level 0.8 mmol/L (0.4-2.0) Ammonia 32 mcmol/L (11-34) Erythrocyte Sedimentation Rate 5 (0-15) Sodium Level 142 mmol/L (136-145) 142 mmol/L (136-145) Potassium Level 3.6 mmol/L (3.5-5.1) 3.7 mmol/L (3.5-5.1) Chloride Level 106 mmol/L (98-107) 106 mmol/L (98-107) Carbon Dioxide Level 25 mmol/L (21-32) 28 mmol/L (21-32) Anion Gap 11 (6-14) 8 (6-14) Blood Urea Nitrogen 12 mg/dL (8-26) 10 mg/dL (8-26) Creatinine 1.0 mg/dL (0.7-1.3) 1.1 mg/dL (0.7-1.3) Estimated GFR (Cockcroft-Gault) 93.5 83.8 BUN/Creatinine Ratio 12 (6-20) 9 (6-20) Glucose Level 93 mg/dL (70-99) 77 mg/dL (70-99) Calcium Level 8.8 mg/dL (8.5-10.1) 9.2 mg/dL (8.5-10.1) Total Bilirubin 0.5 mg/dL (0.2-1.0) 0.3 mg/dL (0.2-1.0) Aspartate Amino Transf (AST/SGOT) 52 U/L (15-37) 62 U/L (15-37) Alanine Aminotransferase (ALT/SGPT) 84 U/L (16-63) 101 U/L (16-63) Alkaline Phosphatase 60 U/L (46-116) 93 U/L (46-116) Total Protein 7.0 g/dL (6.4-8.2) 7.9 g/dL (6.4-8.2) Albumin 3.2 g/dL (3.4-5.0) 3.6 g/dL (3.4-5.0) Albumin/Globulin Ratio 0.8 (1.0-1.7) 0.8 (1.0-1.7) White Blood Count 8.4 x10^3/uL (4.0-11.0) 8.6 x10^3/uL (4.0-11.0) Red Blood Count 3.53 x10^6/uL (4.30-5.70) 3.90 x10^6/uL (4.30-5.70) Hemoglobin 12.5 g/dL (13.0-17.5) 13.8 g/dL (13.0-17.5) Hematocrit 36.3 % (39.0-53.0) 40.3 % (39.0-53.0) Mean Corpuscular Volume 103 fL (79-100) 103 fL (79-100) Mean Corpuscular Hemoglobin 35 pg (25-35) 35 pg (25-35) Mean Corpuscular Hemoglobin Concent 34 g/dL (31-37) 34 g/dL (31-37) Red Cell Distribution Width 13.7 % (11.5-14.5) 13.2 % (11.5-14.5) Platelet Count 356 x10^3/uL (140-400) 365 x10^3/uL (140-400) Laboratory Tests Test 03/27/18 03:15 White Blood Count 8.6 x10^3/uL (4.0-11.0) Red Blood Count 3.90 x10^6/uL (4.30-5.70) Hemoglobin 13.8 g/dL (13.0-17.5) Hematocrit 40.3 % (39.0-53.0) Mean Corpuscular Volume 103 fL (79-100) Mean Corpuscular Hemoglobin 35 pg (25-35) Mean Corpuscular Hemoglobin Concent 34 g/dL (31-37) Red Cell Distribution Width 13.2 % (11.5-14.5) Platelet Count 365 x10^3/uL (140-400) Sodium Level 142 mmol/L (136-145) Potassium Level 3.7 mmol/L (3.5-5.1) Chloride Level 106 mmol/L (98-107) Carbon Dioxide Level 28 mmol/L (21-32) Anion Gap 8 (6-14) Blood Urea Nitrogen 10 mg/dL (8-26) Creatinine 1.1 mg/dL (0.7-1.3) Estimated GFR (Cockcroft-Gault) 83.8 BUN/Creatinine Ratio 9 (6-20) Glucose Level 77 mg/dL (70-99) Calcium Level 9.2 mg/dL (8.5-10.1) Total Bilirubin 0.3 mg/dL (0.2-1.0) Aspartate Amino Transf (AST/SGOT) 62 U/L (15-37) Alanine Aminotransferase (ALT/SGPT) 101 U/L (16-63) Alkaline Phosphatase 93 U/L (46-116) Total Protein 7.9 g/dL (6.4-8.2) Albumin 3.6 g/dL (3.4-5.0) Albumin/Globulin Ratio 0.8 (1.0-1.7) Medications Current Medications Multivitamins 10 ml/Thiamine HCl 100 mg/Folic Acid 1 mg/Sodium Chloride 1,011.2 ml @ 1,000 mls/ hr 1X ONCE IV Last administered on 03/24/18at 20:05; Start at 20:00; Stop 03/24/18 at 21:00; Status DC Ondansetron HCl (Zofran) 4 mg PRN Q8HRS PRN IV NAUSEA/VOMITING 1ST CHOICE; Start 03/25/18 at 00:30; Stop 03/26/18 at 00:29; Status DC Acetaminophen (Tylenol) 650 mg PRN Q4HRS PRN PO FEVER Last administered on 03/25 18:54; Start 03/25/18 at 00:30; Stop 03/26/18 at 00:29; Status DC Amlodipine Besylate (Norvasc) 10 mg DAILY PO Last administered on 03/27/18 09: 17; Start 03/25/18 at 11:30 Fluoxetine HCl (PROzac) 20 mg DAILY PO Last administered on 03/27/18 09:17; Start 03/25/18 at 11:30 Folic Acid (Folic Acid) 1 mg DAILY PO Last administered on 03/27/18 09:17; Start 03/25/18 at 11:30 Trazodone HCl (Desyrel) 100 mg PRN QHS PRN PO INSOMNIA; Start 03/25/18 at 11:15 Labetalol HCl (Trandate) 200 mg BID PO Last administered on 03/27/18 09:17; Start 03/25/18 at 11:30 Naproxen (Naprosyn) 500 mg PRN BID PRN PO INFLAMMATION/PAIN; Start 03/25/18 at 11:30 Nicotine (Nicoderm Cq 21mg) 1 patch DAILY TD Last administered on 03/27/18 09: 17; Start 03/25/18 at 11:30 Olanzapine (ZyPREXA) 20 mg QHS PO Last administered on 03/26/18at 20:59; Start 03/25/18 at 21:00 Thiamine Mononitrate (Vitamin B-1) 100 mg DAILY PO Last administered on 09:17; Start 03/25/18 at 11:30 Magnesium Oxide (Magnesium Oxide) 400 mg BID PO Last administered on 03/27/18 09:17; Start 03/25/18 at 12:30 Sodium Chloride 1,000 ml @ 1,000 mls/hr 1X ONCE IV Last administered on at 13:39; Start 03/25/18 at 12:00; Stop 03/25/18 at 12:59; Status DC Pantoprazole Sodium (Protonix) 40 mg DAILYAC PO Last administered on 03/27/18at 09:17; Start 03/25/18 at 12:30 Lorazepam (Ativan) 2 mg Q6H PO Last administered on 03/26/18at 23:38; Start at 17:30; Stop 03/26/18 at 23:31; Status DC Active Scripts Active Naproxen 500 Mg Tablet 1 Tab PO BID PRN Vitamin B-1 (Thiamine Hcl) 100 Mg Tablet 100 Mg PO DAILY Trandate (Labetalol Hcl) 200 Mg Tablet 200 Mg PO BID 30 Days Folic Acid 1 Mg Tablet 1 Mg PO DAILY Norvasc (Amlodipine Besylate) 10 Mg Tablet 10 Mg PO DAILY 30 Days Reported NICODERM CQ 21mg (Nicotine) 1 Each Patch.td24 1 Patch TP DAILY Trazodone Hcl 100 Mg Tablet 1 Tab PO PRN QHS PRN Zyprexa (Olanzapine) 20 Mg Tablet 1 Tab PO QHS Fluoxetine Hcl 20 Mg Capsule 1 Cap PO DAILY Symbyax 6-50 Mg Capsule (Olanzapine/Fluoxetine Hcl) 1 Each Capsule 1 Each PO Vitals/I & O Vital Sign - Last 24 Hours 03/26/18 03/26/18 03/26/18 03/26/18 11:00 15:00 19:00 20:08 Temp 97.9 97.5 97.8 97.9 97.5 97.8 Pulse 86 85 89 Resp 18 B/P (MAP) 107/68 (81) 106/66 (79) 120/74 (89) Pulse Ox 94 96 97 O2 Delivery Room Air Room Air Room Air Room Air 03/26/18 03/26/18 03/27/18 03/27/18 21:00 22:37 02:37 07:00 Temp 98.4 97.6 97.9 98.4 97.6 97.9 Pulse 89 77 83 88 Resp 20 B/P (MAP) 120/74 147/91 (109) 131/88 (102) 131/87 (102) Pulse Ox 96 96 97 O2 Delivery Room Air Room Air Room Air 03/27/18 03/27/18 09:17 09:17 Pulse 88 88 B/P (MAP) 131/87 131/87 Intake and Output 03/26/18 03/26/18 03/27/18 15:01 23:01 07:01 Intake Total 480 ml 800 ml Output Total 1550 ml Balance 480 ml -750 ml NILDA DASILVA MD Mar 27, 2018 10:14
[2018-03-27 11:00] VITALS: BP 138/85
[2018-03-27 15:00] VITALS: BP 131/83
[2018-03-27 19:00] VITALS: BP 121/85
[2018-03-27] MEDS: OLANZapine 5 MG TABLET PO SCH (21:18)
[2018-03-27] MEDS: traZODone 100 MG TABLET. PO PRN (21:20)
[2018-03-27 23:00] VITALS: BP 146/70
[2018-03-28 02:58] VITALS: BP 144/90
[2018-03-28 07:00] VITALS: BP 125/87
--- NOTE | 2018-03-28 08:06 | RAD ---
Carotid ultrasound, 03/27/2018: HISTORY: Altered mental status Duplex evaluation of the carotid arteries and neck was performed including grayscale, color-flow and spectral Doppler analysis. There is minimal intimal thickening in the common carotid arteries with minimal smooth plaquing at the carotid bifurcations. The peak systolic velocity in the right internal carotid artery is 57 cm per sec with an end-diastolic velocity of 20 cm/s and an internal carotid to common carotid artery ratio 1.0. The peak systolic velocity in the left internal carotid artery is 60 cm per sec with an end-diastolic velocity of 23 cm/s and an internal carotid to common carotid artery ratio of 0.8. These Doppler findings do not suggest significant stenosis. Antegrade flow is present in both vertebral arteries in the neck. IMPRESSION: Minimal atherosclerotic plaquing at both carotid bifurcations with no duplex of significant associated stenosis. Note: Stenosis calculations for CT, MRA and conventional angiography are based upon determination of the distal ICA diameter in accordance with the NASCET methodology. Stenosis calculations for Doppler studies are derived from validated velocity criteria which are known to correlate with NASCET methodology of determining stenosis. Electronically signed by: Salo Kessler MD (03/28/2018 8:03 AM) [facility]
[2018-03-28] MEDS: FLUoxetine HCL 20 MG CAPSULE PO SCH (10:24)
[2018-03-28] MEDS: FOLIC ACID 1 MG TABLET. PO SCH (10:24)
[2018-03-28] MEDS: PANTOPRAZOLE 40 MG TABLET.DR. PO SCH (10:24)
[2018-03-28] MEDS: THIAMINE 100 MG TABLET. PO SCH (10:25)
[2018-03-28] MEDS: amLODIPine BESYLATE 10 MG TABLET PO SCH (10:25)
[2018-03-28] MEDS: MAGNESIUM OXIDE 400 MG TABLET PO SCH ×2 (10:25→20:31)
[2018-03-28] MEDS: LABETALOL HCL 200 MG TABLET PO SCH ×2 (10:25→20:31)
[2018-03-28] MEDS: NAPROXEN 500 MG TABLET PO PRN ×2 (10:39→21:55)
[2018-03-28] MEDS: NICOTINE 21MG PATCH. TD SCH (10:40)
[2018-03-28 11:00] VITALS: BP 135/74
--- NOTE | 2018-03-28 11:04 | PDOC ---
PROGRESS NOTES Chief Complaint Chief Complaint 1-mental status change and ? syncope, likely ETOH intoxication 2-hypomagnesemia replaced 3-lactic acidosis hydrated 4-alcoholic liver disease/ hepatitis 5-depression 6-HTN 7-hx brain aneurysm 8-COPD 9- smoker 10-Substance abuse 11- Depressed fracture of the zygomatic arch on the left was not seen previously and appears acute. need to see maxillary surgeon today 12 syncope most probably alcohol blackout. Telemetry did not show any significant arrhythmias. 2-D echo on 2014 showed normal LV systolic function. Plan for repeating 2-D echocardiogram as an outpatient to rule out structural abnormalities. 13 Chest pain with atypical features, History of Present Illness History of Present Illness feels much better, has been up to bathroom, will ask pt to evaluate safety to go home, neurology consult pending Vitals Vitals Vital Signs Date Time Temp Pulse Resp B/P (MAP) Pulse Ox O2 Delivery O2 Flow Rate FiO2 03/28/18 10:25 72 134/74 03/28/18 08:00 Room Air 03/28/18 07:00 97.5 19 99 97.5 Physical Exam General: Alert, Oriented X3, Cooperative, No acute distress, Other (left zygomatic area tender) Heart: Regular rate, Normal S1, Normal S2 Lungs: Clear Abdomen: Normal bowel sounds, Soft, No tenderness Extremities: No cyanosis, No edema Assessment and Plan Assessmemt and Plan Problems Medical Problems: (1) Altered mental status Status: Acute Comment Review of Relevant I have reviewed the following items robby (where applicable) has been applied. Labs Laboratory Tests Test 03/27/18 03:15 White Blood Count 8.6 x10^3/uL (4.0-11.0) Red Blood Count 3.90 x10^6/uL (4.30-5.70) Hemoglobin 13.8 g/dL (13.0-17.5) Hematocrit 40.3 % (39.0-53.0) Mean Corpuscular Volume 103 fL (79-100) Mean Corpuscular Hemoglobin 35 pg (25-35) Mean Corpuscular Hemoglobin Concent 34 g/dL (31-37) Red Cell Distribution Width 13.2 % (11.5-14.5) Platelet Count 365 x10^3/uL (140-400) Sodium Level 142 mmol/L (136-145) Potassium Level 3.7 mmol/L (3.5-5.1) Chloride Level 106 mmol/L (98-107) Carbon Dioxide Level 28 mmol/L (21-32) Anion Gap 8 (6-14) Blood Urea Nitrogen 10 mg/dL (8-26) Creatinine 1.1 mg/dL (0.7-1.3) Estimated GFR (Cockcroft-Gault) 83.8 BUN/Creatinine Ratio 9 (6-20) Glucose Level 77 mg/dL (70-99) Calcium Level 9.2 mg/dL (8.5-10.1) Total Bilirubin 0.3 mg/dL (0.2-1.0) Aspartate Amino Transf (AST/SGOT) 62 U/L (15-37) Alanine Aminotransferase (ALT/SGPT) 101 U/L (16-63) Alkaline Phosphatase 93 U/L (46-116) Total Protein 7.9 g/dL (6.4-8.2) Albumin 3.6 g/dL (3.4-5.0) Albumin/Globulin Ratio 0.8 (1.0-1.7) Medications Current Medications Multivitamins 10 ml/Thiamine HCl 100 mg/Folic Acid 1 mg/Sodium Chloride 1,011.2 ml @ 1,000 mls/ hr 1X ONCE IV Last administered on 03/24/18at 20:05; Start at 20:00; Stop 03/24/18 at 21:00; Status DC Ondansetron HCl (Zofran) 4 mg PRN Q8HRS PRN IV NAUSEA/VOMITING 1ST CHOICE; Start 03/25/18 at 00:30; Stop 03/26/18 at 00:29; Status DC Acetaminophen (Tylenol) 650 mg PRN Q4HRS PRN PO FEVER Last administered on 03/25at 18:54; Start 03/25/18 at 00:30; Stop 03/26/18 at 00:29; Status DC Amlodipine Besylate (Norvasc) 10 mg DAILY PO Last administered on 03/28/18at 10: 25; Start 03/25/18 at 11:30 Fluoxetine HCl (PROzac) 20 mg DAILY PO Last administered on 03/28/18at 10:24; Start 03/25/18 at 11:30 Folic Acid (Folic Acid) 1 mg DAILY PO Last administered on 03/28/18 10:24; Start 03/25/18 at 11:30 Trazodone HCl (Desyrel) 100 mg PRN QHS PRN PO INSOMNIA Last administered on 21:20; Start 03/25/18 at 11:15 Labetalol HCl (Trandate) 200 mg BID PO Last administered on 03/28/18 10:25; Start 03/25/18 at 11:30 Naproxen (Naprosyn) 500 mg PRN BID PRN PO INFLAMMATION/PAIN Last administered on 03/28/18 10:39; Start 03/25/18 at 11:30 Nicotine (Nicoderm Cq 21mg) 1 patch DAILY TD Last administered on 03/28/18 10: 40; Start 03/25/18 at 11:30 Olanzapine (ZyPREXA) 20 mg QHS PO Last administered on 03/27/18 21:18; Start 03/25/18 at 21:00 Thiamine Mononitrate (Vitamin B-1) 100 mg DAILY PO Last administered on 10:25; Start 03/25/18 at 11:30 Magnesium Oxide (Magnesium Oxide) 400 mg BID PO Last administered on 03/28/18 10:25; Start 03/25/18 at 12:30 Sodium Chloride 1,000 ml @ 1,000 mls/hr 1X ONCE IV Last administered on 13:39; Start 03/25/18 at 12:00; Stop 03/25/18 at 12:59; Status DC Pantoprazole Sodium (Protonix) 40 mg DAILYAC PO Last administered on 03/28/18 10:24; Start 03/25/18 at 12:30 Lorazepam (Ativan) 2 mg Q6H PO Last administered on 03/26/18 23:38; Start at 17:30; Stop 03/26/18 at 23:31; Status DC Active Scripts Active Naproxen 500 Mg Tablet 1 Tab PO BID PRN Vitamin B-1 (Thiamine Hcl) 100 Mg Tablet 100 Mg PO DAILY Trandate (Labetalol Hcl) 200 Mg Tablet 200 Mg PO BID 30 Days Folic Acid 1 Mg Tablet 1 Mg PO DAILY Norvasc (Amlodipine Besylate) 10 Mg Tablet 10 Mg PO DAILY 30 Days Reported NICODERM CQ 21mg (Nicotine) 1 Each Patch.td24 1 Patch TP DAILY Trazodone Hcl 100 Mg Tablet 1 Tab PO PRN QHS PRN Zyprexa (Olanzapine) 20 Mg Tablet 1 Tab PO QHS Fluoxetine Hcl 20 Mg Capsule 1 Cap PO DAILY Symbyax 6-50 Mg Capsule (Olanzapine/Fluoxetine Hcl) 1 Each Capsule 1 Each PO Vitals/I & O Vital Sign - Last 24 Hours 03/27/18 03/27/18 03/27/18 03/27/18 15:00 19:00 20:00 21:18 Temp 98.0 97.8 98.0 97.8 Pulse 82 84 84 Resp 20 15 B/P (MAP) 131/83 (99) 121/85 (97) 121/85 Pulse Ox 97 99 O2 Delivery Room Air Room Air Room Air 03/27/18 03/28/18 03/28/18 03/28/18 23:00 02:58 07:00 08:00 Temp 98.0 97.5 98.0 97.5 Pulse 83 83 102 Resp 15 19 19 B/P (MAP) 146/70 (95) 144/90 (108) 125/87 (100) Pulse Ox 99 98 99 O2 Delivery Room Air Room Air Room Air Room Air 03/28/18 03/28/18 10:25 10:25 Pulse 72 72 B/P (MAP) 135/74 134/74 Intake and Output 03/27/18 03/27/18 03/28/18 15:00 23:00 07:00 Intake Total 600 ml 1300 ml 1280 ml Output Total 400 ml Balance 600 ml 1300 ml 880 ml NILDA DASILVA MD Mar 28, 2018 11:04
[2018-03-28 15:00] VITALS: BP 131/68
--- NOTE | 2018-03-28 17:01 | PDOC ---
PROGRESS NOTES Chief Complaint Chief Complaint 1-mental status change and ? syncope, likely ETOH intoxication 2-hypomagnesemia replaced 3-lactic acidosis hydrated 4-alcoholic liver disease/ hepatitis 5-depression 6-HTN 7-hx brain aneurysm 8-COPD 9- smoker 10-Substance abuse 11- Depressed fracture of the zygomatic arch on the left was not seen previously and appears acute. need to see maxillary surgeon today 12 syncope most probably alcohol blackout. Telemetry did not show any significant arrhythmias. 2-D echo on 2014 showed normal LV systolic function. Plan for repeating 2-D echocardiogram as an outpatient to rule out structural abnormalities. 13 Chest pain with atypical features, History of Present Illness History of Present Illness feels much better, has been up to bathroom, will ask pt to evaluate safety to go home, neurology consult pending Vitals Vitals Vital Signs Date Time Temp Pulse Resp B/P (MAP) Pulse Ox O2 Delivery O2 Flow Rate FiO2 03/28/18 15:00 97.2 77 18 131/68 (89) 95 Room Air 97.2 Physical Exam General: Alert, Oriented X3, Cooperative, No acute distress, Other (left zygomatic area tender) Heart: Regular rate, Normal S1, Normal S2 Lungs: Clear Abdomen: Normal bowel sounds, Soft, No tenderness Extremities: No cyanosis, No edema Labs LABS Carotid ultrasound, 03/27/2018: HISTORY: Altered mental status Duplex evaluation of the carotid arteries and neck was performed including grayscale, color-flow and spectral Doppler analysis. There is minimal intimal thickening in the common carotid arteries with minimal smooth plaquing at the carotid bifurcations. The peak systolic velocity in the right internal carotid artery is 57 cm per sec with an end-diastolic velocity of 20 cm/s and an internal carotid to common carotid artery ratio 1.0. The peak systolic velocity in the left internal carotid artery is 60 cm per sec with an end-diastolic velocity of 23 cm/s and an internal carotid to common carotid artery ratio of 0.8. These Doppler findings do not suggest significant stenosis. Antegrade flow is present in both vertebral arteries in the neck. IMPRESSION: Minimal atherosclerotic plaquing at both carotid bifurcations with no duplex of significant associated stenosis. Note: Stenosis calculations for CT, MRA and conventional angiography are based upon determination of the distal ICA diameter in accordance with the NASCET methodology. Stenosis calculations for Doppler studies are derived from validated velocity criteria which are known to correlate with NASCET methodology of determining stenosis. Assessment and Plan Assessmemt and Plan Problems Medical Problems: (1) Altered mental status Status: Acute Problems: Comment Review of Relevant I have reviewed the following items robby (where applicable) has been applied. Labs Laboratory Tests Test 03/27/18 03:15 White Blood Count 8.6 x10^3/uL (4.0-11.0) Red Blood Count 3.90 x10^6/uL (4.30-5.70) Hemoglobin 13.8 g/dL (13.0-17.5) Hematocrit 40.3 % (39.0-53.0) Mean Corpuscular Volume 103 fL (79-100) Mean Corpuscular Hemoglobin 35 pg (25-35) Mean Corpuscular Hemoglobin Concent 34 g/dL (31-37) Red Cell Distribution Width 13.2 % (11.5-14.5) Platelet Count 365 x10^3/uL (140-400) Sodium Level 142 mmol/L (136-145) Potassium Level 3.7 mmol/L (3.5-5.1) Chloride Level 106 mmol/L (98-107) Carbon Dioxide Level 28 mmol/L (21-32) Anion Gap 8 (6-14) Blood Urea Nitrogen 10 mg/dL (8-26) Creatinine 1.1 mg/dL (0.7-1.3) Estimated GFR (Cockcroft-Gault) 83.8 BUN/Creatinine Ratio 9 (6-20) Glucose Level 77 mg/dL (70-99) Calcium Level 9.2 mg/dL (8.5-10.1) Total Bilirubin 0.3 mg/dL (0.2-1.0) Aspartate Amino Transf (AST/SGOT) 62 U/L (15-37) Alanine Aminotransferase (ALT/SGPT) 101 U/L (16-63) Alkaline Phosphatase 93 U/L (46-116) Total Protein 7.9 g/dL (6.4-8.2) Albumin 3.6 g/dL (3.4-5.0) Albumin/Globulin Ratio 0.8 (1.0-1.7) Medications Current Medications Multivitamins 10 ml/Thiamine HCl 100 mg/Folic Acid 1 mg/Sodium Chloride 1,011.2 ml @ 1,000 mls/ hr 1X ONCE IV Last administered on 03/24/18 20:05; Start at 20:00; Stop 03/24/18 at 21:00; Status DC Ondansetron HCl (Zofran) 4 mg PRN Q8HRS PRN IV NAUSEA/VOMITING 1ST CHOICE; Start 03/25/18 at 00:30; Stop 03/26/18 at 00:29; Status DC Acetaminophen (Tylenol) 650 mg PRN Q4HRS PRN PO FEVER Last administered on 03/25 18:54; Start 03/25/18 at 00:30; Stop 03/26/18 at 00:29; Status DC Amlodipine Besylate (Norvasc) 10 mg DAILY PO Last administered on 03/28/18 10: 25; Start 03/25/18 at 11:30 Fluoxetine HCl (PROzac) 20 mg DAILY PO Last administered on 03/28/18 10:24; Start 03/25/18 at 11:30 Folic Acid (Folic Acid) 1 mg DAILY PO Last administered on 03/28/18 10:24; Start 03/25/18 at 11:30 Trazodone HCl (Desyrel) 100 mg PRN QHS PRN PO INSOMNIA Last administered on 21:20; Start 03/25/18 at 11:15 Labetalol HCl (Trandate) 200 mg BID PO Last administered on 03/28/18 10:25; Start 03/25/18 at 11:30 Naproxen (Naprosyn) 500 mg PRN BID PRN PO INFLAMMATION/PAIN Last administered on 03/28/18at 10:39; Start 03/25/18 at 11:30 Nicotine (Nicoderm Cq 21mg) 1 patch DAILY TD Last administered on 03/28/18 10: 40; Start 03/25/18 at 11:30 Olanzapine (ZyPREXA) 20 mg QHS PO Last administered on 03/27/18 21:18; Start 03/25/18 at 21:00 Thiamine Mononitrate (Vitamin B-1) 100 mg DAILY PO Last administered on 10:25; Start 03/25/18 at 11:30 Magnesium Oxide (Magnesium Oxide) 400 mg BID PO Last administered on 03/28/18at 10:25; Start 03/25/18 at 12:30 Sodium Chloride 1,000 ml @ 1,000 mls/hr 1X ONCE IV Last administered on at 13:39; Start 03/25/18 at 12:00; Stop 03/25/18 at 12:59; Status DC Pantoprazole Sodium (Protonix) 40 mg DAILYAC PO Last administered on 03/28/18at 10:24; Start 03/25/18 at 12:30 Lorazepam (Ativan) 2 mg Q6H PO Last administered on 03/26/18at 23:38; Start at 17:30; Stop 03/26/18 at 23:31; Status DC Active Scripts Active Naproxen 500 Mg Tablet 1 Tab PO BID PRN Vitamin B-1 (Thiamine Hcl) 100 Mg Tablet 100 Mg PO DAILY Trandate (Labetalol Hcl) 200 Mg Tablet 200 Mg PO BID 30 Days Folic Acid 1 Mg Tablet 1 Mg PO DAILY Norvasc (Amlodipine Besylate) 10 Mg Tablet 10 Mg PO DAILY 30 Days Reported NICODERM CQ 21mg (Nicotine) 1 Each Patch.td24 1 Patch TP DAILY Trazodone Hcl 100 Mg Tablet 1 Tab PO PRN QHS PRN Zyprexa (Olanzapine) 20 Mg Tablet 1 Tab PO QHS Fluoxetine Hcl 20 Mg Capsule 1 Cap PO DAILY Symbyax 6-50 Mg Capsule (Olanzapine/Fluoxetine Hcl) 1 Each Capsule 1 Each PO Vitals/I & O Vital Sign - Last 24 Hours 03/27/18 03/27/18 03/27/18 03/27/18 19:00 20:00 21:18 23:00 Temp 97.8 97.8 Pulse 84 84 83 Resp 15 15 B/P (MAP) 121/85 (97) 121/85 146/70 (95) Pulse Ox 99 99 O2 Delivery Room Air Room Air Room Air 03/28/18 03/28/18 03/28/18 03/28/18 02:58 07:00 08:00 10:25 Temp 98.0 97.5 98.0 97.5 Pulse 83 102 72 Resp 19 19 B/P (MAP) 144/90 (108) 125/87 (100) 135/74 Pulse Ox 98 99 O2 Delivery Room Air Room Air Room Air 03/28/18 03/28/18 03/28/18 10:25 11:00 15:00 Temp 97.5 97.2 97.5 97.2 Pulse 72 72 77 Resp 18 18 B/P (MAP) 134/74 135/74 (94) 131/68 (89) Pulse Ox 99 95 O2 Delivery Room Air Room Air Intake and Output 03/27/18 03/27/18 03/28/18 15:00 23:00 07:00 Intake Total 600 ml 1300 ml 1280 ml Output Total 400 ml Balance 600 ml 1300 ml 880 ml NILDA DASILVA MD Mar 28, 2018 17:01
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
[2018-03-28 19:00] VITALS: BP 113/70
[2018-03-28] MEDS: OLANZapine 5 MG TABLET PO SCH (20:31)
[2018-03-28] MEDS: traZODone 100 MG TABLET. PO PRN (21:55)
[2018-03-28 22:48] VITALS: BP 101/43
[2018-03-29 03:00] VITALS: BP 142/76
[2018-03-29 07:00] VITALS: BP 111/66
[2018-03-29] MEDS: LABETALOL HCL 200 MG TABLET PO SCH ×2 (08:04→20:24)
[2018-03-29] MEDS: PANTOPRAZOLE 40 MG TABLET.DR. PO SCH (08:04)
[2018-03-29] MEDS: FOLIC ACID 1 MG TABLET. PO SCH (08:05)
[2018-03-29] MEDS: THIAMINE 100 MG TABLET. PO SCH (08:05)
[2018-03-29] MEDS: MAGNESIUM OXIDE 400 MG TABLET PO SCH ×2 (08:05→20:24)
[2018-03-29] MEDS: amLODIPine BESYLATE 10 MG TABLET PO SCH (08:05)
[2018-03-29] MEDS: FLUoxetine HCL 20 MG CAPSULE PO SCH (08:05)
[2018-03-29] MEDS: NICOTINE 21MG PATCH. TD SCH (08:06)
[2018-03-29 08:42] LABS: BASO # 0.1 x10^3/uL (0.0-0.2); BASO % 1 % (0-3); EOS # 0.1 x10^3/uL (0.0-0.7); EOS % 2 % (0-3); HEMATOCRIT 36.2 % (39.0-53.0); HEMOGLOBIN 12.6 g/dL (13.0-17.5); LYMPH # 2.4 x10^3/uL (1.0-4.8); LYMPH % 34 % (24-48); MEAN CORPUSCULAR HEMOGLOBIN 36 pg (25-35); MEAN CORPUSCULAR HGB CONC 35 g/dL (31-37); MEAN CORPUSCULAR VOLUME 102 fL (79-100); MONO # 0.7 x10^3/uL (0.0-1.1); MONO % 9 % (0-9); NEUT # 3.9 x10^3uL (1.8-7.7); NEUT % 55 % (31-73); PLATELET COUNT 362 x10^3/uL (140-400); RED BLOOD COUNT 3.54 x10^6/uL (4.30-5.70); RED CELL DISTRIBUTION WIDTH 13.4 % (11.5-14.5); WHITE BLOOD COUNT 7.1 x10^3/uL (4.0-11.0)
[2018-03-29 09:03] LABS: ALBUMIN 3.3 g/dL (3.4-5.0); ALBUMIN/GLOBULIN RATIO 0.9 (1.0-1.7); CALCIUM 8.8 mg/dL (8.5-10.1); CREATININE 1.3 mg/dL (0.7-1.3); GFR 69.1; POTASSIUM 4.2 mmol/L (3.5-5.1); TOTAL BILIRUBIN 0.4 mg/dL (0.2-1.0); TOTAL PROTEIN 6.9 g/dL (6.4-8.2)
--- NOTE | 2018-03-29 10:41 | PDOC ---
PROGRESS NOTES Chief Complaint Chief Complaint 1-mental status change and ? syncope, likely ETOH intoxication 2-hypomagnesemia replaced 3-lactic acidosis hydrated 4-alcoholic liver disease/ hepatitis 5-depression 6-HTN 7-hx brain aneurysm 8-COPD 9- smoker 10-Substance abuse 11- Depressed fracture of the zygomatic arch on the left was not seen previously and appears acute. need to see maxillary surgeon 12 syncope most probably alcohol blackout. Telemetry did not show any significant arrhythmias. 2-D echo on 2014 showed normal LV systolic function. Plan for repeating 2-D echocardiogram as an outpatient to rule out structural abnormalities. 13 Chest pain with atypical features, EEG PENDING History of Present Illness History of Present Illness feels much better, has been up to bathroom, will ask pt to evaluate safety to go home, neurology consult pending Vitals Vitals Vital Signs Date Time Temp Pulse Resp B/P (MAP) Pulse Ox O2 Delivery O2 Flow Rate FiO2 03/29/18 08:05 67 111/66 03/29/18 08:00 Room Air 03/29/18 07:00 96.4 16 94 96.4 Physical Exam General: Alert, Oriented X3, Cooperative, No acute distress, Other (left zygomatic area tender) Heart: Regular rate, Normal S1, Normal S2, No murmurs Lungs: Clear Abdomen: Normal bowel sounds, Soft, No tenderness Extremities: No cyanosis, No edema Labs LABS Laboratory Tests Test 03/29/18 07:53 White Blood Count 7.1 x10^3/uL (4.0-11.0) Red Blood Count 3.54 x10^6/uL (4.30-5.70) Hemoglobin 12.6 g/dL (13.0-17.5) Hematocrit 36.2 % (39.0-53.0) Mean Corpuscular Volume 102 fL (79-100) Mean Corpuscular Hemoglobin 36 pg (25-35) Mean Corpuscular Hemoglobin Concent 35 g/dL (31-37) Red Cell Distribution Width 13.4 % (11.5-14.5) Platelet Count 362 x10^3/uL (140-400) Neutrophils (%) (Auto) 55 % (31-73) Lymphocytes (%) (Auto) 34 % (24-48) Monocytes (%) (Auto) 9 % (0-9) Eosinophils (%) (Auto) 2 % (0-3) Basophils (%) (Auto) 1 % (0-3) Neutrophils # (Auto) 3.9 x10^3uL (1.8-7.7) Lymphocytes # (Auto) 2.4 x10^3/uL (1.0-4.8) Monocytes # (Auto) 0.7 x10^3/uL (0.0-1.1) Eosinophils # (Auto) 0.1 x10^3/uL (0.0-0.7) Basophils # (Auto) 0.1 x10^3/uL (0.0-0.2) Sodium Level 139 mmol/L (136-145) Potassium Level 4.2 mmol/L (3.5-5.1) Chloride Level 106 mmol/L (98-107) Carbon Dioxide Level 28 mmol/L (21-32) Anion Gap 5 (6-14) Blood Urea Nitrogen 17 mg/dL (8-26) Creatinine 1.3 mg/dL (0.7-1.3) Estimated GFR (Cockcroft-Gault) 69.1 BUN/Creatinine Ratio 13 (6-20) Glucose Level 89 mg/dL (70-99) Calcium Level 8.8 mg/dL (8.5-10.1) Total Bilirubin 0.4 mg/dL (0.2-1.0) Aspartate Amino Transf (AST/SGOT) 66 U/L (15-37) Alanine Aminotransferase (ALT/SGPT) 106 U/L (16-63) Alkaline Phosphatase 71 U/L (46-116) Total Protein 6.9 g/dL (6.4-8.2) Albumin 3.3 g/dL (3.4-5.0) Albumin/Globulin Ratio 0.9 (1.0-1.7) Assessment and Plan Assessmemt and Plan Problems Medical Problems: (1) Altered mental status Status: Acute Comment Review of Relevant I have reviewed the following items robby (where applicable) has been applied. Labs Laboratory Tests Test 03/29/18 07:53 White Blood Count 7.1 x10^3/uL (4.0-11.0) Red Blood Count 3.54 x10^6/uL (4.30-5.70) Hemoglobin 12.6 g/dL (13.0-17.5) Hematocrit 36.2 % (39.0-53.0) Mean Corpuscular Volume 102 fL (79-100) Mean Corpuscular Hemoglobin 36 pg (25-35) Mean Corpuscular Hemoglobin Concent 35 g/dL (31-37) Red Cell Distribution Width 13.4 % (11.5-14.5) Platelet Count 362 x10^3/uL (140-400) Neutrophils (%) (Auto) 55 % (31-73) Lymphocytes (%) (Auto) 34 % (24-48) Monocytes (%) (Auto) 9 % (0-9) Eosinophils (%) (Auto) 2 % (0-3) Basophils (%) (Auto) 1 % (0-3) Neutrophils # (Auto) 3.9 x10^3uL (1.8-7.7) Lymphocytes # (Auto) 2.4 x10^3/uL (1.0-4.8) Monocytes # (Auto) 0.7 x10^3/uL (0.0-1.1) Eosinophils # (Auto) 0.1 x10^3/uL (0.0-0.7) Basophils # (Auto) 0.1 x10^3/uL (0.0-0.2) Sodium Level 139 mmol/L (136-145) Potassium Level 4.2 mmol/L (3.5-5.1) Chloride Level 106 mmol/L (98-107) Carbon Dioxide Level 28 mmol/L (21-32) Anion Gap 5 (6-14) Blood Urea Nitrogen 17 mg/dL (8-26) Creatinine 1.3 mg/dL (0.7-1.3) Estimated GFR (Cockcroft-Gault) 69.1 BUN/Creatinine Ratio 13 (6-20) Glucose Level 89 mg/dL (70-99) Calcium Level 8.8 mg/dL (8.5-10.1) Total Bilirubin 0.4 mg/dL (0.2-1.0) Aspartate Amino Transf (AST/SGOT) 66 U/L (15-37) Alanine Aminotransferase (ALT/SGPT) 106 U/L (16-63) Alkaline Phosphatase 71 U/L (46-116) Total Protein 6.9 g/dL (6.4-8.2) Albumin 3.3 g/dL (3.4-5.0) Albumin/Globulin Ratio 0.9 (1.0-1.7) Laboratory Tests Test 03/29/18 07:53 White Blood Count 7.1 x10^3/uL (4.0-11.0) Red Blood Count 3.54 x10^6/uL (4.30-5.70) Hemoglobin 12.6 g/dL (13.0-17.5) Hematocrit 36.2 % (39.0-53.0) Mean Corpuscular Volume 102 fL (79-100) Mean Corpuscular Hemoglobin 36 pg (25-35) Mean Corpuscular Hemoglobin Concent 35 g/dL (31-37) Red Cell Distribution Width 13.4 % (11.5-14.5) Platelet Count 362 x10^3/uL (140-400) Neutrophils (%) (Auto) 55 % (31-73) Lymphocytes (%) (Auto) 34 % (24-48) Monocytes (%) (Auto) 9 % (0-9) Eosinophils (%) (Auto) 2 % (0-3) Basophils (%) (Auto) 1 % (0-3) Neutrophils # (Auto) 3.9 x10^3uL (1.8-7.7) Lymphocytes # (Auto) 2.4 x10^3/uL (1.0-4.8) Monocytes # (Auto) 0.7 x10^3/uL (0.0-1.1) Eosinophils # (Auto) 0.1 x10^3/uL (0.0-0.7) Basophils # (Auto) 0.1 x10^3/uL (0.0-0.2) Sodium Level 139 mmol/L (136-145) Potassium Level 4.2 mmol/L (3.5-5.1) Chloride Level 106 mmol/L (98-107) Carbon Dioxide Level 28 mmol/L (21-32) Anion Gap 5 (6-14) Blood Urea Nitrogen 17 mg/dL (8-26) Creatinine 1.3 mg/dL (0.7-1.3) Estimated GFR (Cockcroft-Gault) 69.1 BUN/Creatinine Ratio 13 (6-20) Glucose Level 89 mg/dL (70-99) Calcium Level 8.8 mg/dL (8.5-10.1) Total Bilirubin 0.4 mg/dL (0.2-1.0) Aspartate Amino Transf (AST/SGOT) 66 U/L (15-37) Alanine Aminotransferase (ALT/SGPT) 106 U/L (16-63) Alkaline Phosphatase 71 U/L (46-116) Total Protein 6.9 g/dL (6.4-8.2) Albumin 3.3 g/dL (3.4-5.0) Albumin/Globulin Ratio 0.9 (1.0-1.7) Medications Current Medications Multivitamins 10 ml/Thiamine HCl 100 mg/Folic Acid 1 mg/Sodium Chloride 1,011.2 ml @ 1,000 mls/ hr 1X ONCE IV Last administered on 03/24/18 20:05; Start at 20:00; Stop 03/24/18 at 21:00; Status DC Ondansetron HCl (Zofran) 4 mg PRN Q8HRS PRN IV NAUSEA/VOMITING 1ST CHOICE; Start 03/25/18 at 00:30; Stop 03/26/18 at 00:29; Status DC Acetaminophen (Tylenol) 650 mg PRN Q4HRS PRN PO FEVER Last administered on 03/25 18:54; Start 03/25/18 at 00:30; Stop 03/26/18 at 00:29; Status DC Amlodipine Besylate (Norvasc) 10 mg DAILY PO Last administered on 03/29/18 08: 05; Start 03/25/18 at 11:30 Fluoxetine HCl (PROzac) 20 mg DAILY PO Last administered on 03/29/18 08:05; Start 03/25/18 at 11:30 Folic Acid (Folic Acid) 1 mg DAILY PO Last administered on 03/29/18 08:05; Start 03/25/18 at 11:30 Trazodone HCl (Desyrel) 100 mg PRN QHS PRN PO INSOMNIA Last administered on 21:55; Start 03/25/18 at 11:15 Labetalol HCl (Trandate) 200 mg BID PO Last administered on 03/29/18 08:04; Start 03/25/18 at 11:30 Naproxen (Naprosyn) 500 mg PRN BID PRN PO INFLAMMATION/PAIN Last administered on 8/21/18at 21:55; Start 03/25/18 at 11:30 Nicotine (Nicoderm Cq 21mg) 1 patch DAILY TD Last administered on 03/29/18 08: 06; Start 03/25/18 at 11:30 Olanzapine (ZyPREXA) 20 mg QHS PO Last administered on 03/28/18at 20:31; Start 03/25/18 at 21:00 Thiamine Mononitrate (Vitamin B-1) 100 mg DAILY PO Last administered on at 08:05; Start 03/25/18 at 11:30 Magnesium Oxide (Magnesium Oxide) 400 mg BID PO Last administered on 03/29/18 08:05; Start 03/25/18 at 12:30 Sodium Chloride 1,000 ml @ 1,000 mls/hr 1X ONCE IV Last administered on at 13:39; Start 03/25/18 at 12:00; Stop 03/25/18 at 12:59; Status DC Pantoprazole Sodium (Protonix) 40 mg DAILYAC PO Last administered on 03/29/18at 08:04; Start 03/25/18 at 12:30 Lorazepam (Ativan) 2 mg Q6H PO Last administered on 03/26/18at 23:38; Start at 17:30; Stop 03/26/18 at 23:31; Status DC Active Scripts Active Naproxen 500 Mg Tablet 1 Tab PO BID PRN Vitamin B-1 (Thiamine Hcl) 100 Mg Tablet 100 Mg PO DAILY Trandate (Labetalol Hcl) 200 Mg Tablet 200 Mg PO BID 30 Days Folic Acid 1 Mg Tablet 1 Mg PO DAILY Norvasc (Amlodipine Besylate) 10 Mg Tablet 10 Mg PO DAILY 30 Days Reported NICODERM CQ 21mg (Nicotine) 1 Each Patch.td24 1 Patch TP DAILY Trazodone Hcl 100 Mg Tablet 1 Tab PO PRN QHS PRN Zyprexa (Olanzapine) 20 Mg Tablet 1 Tab PO QHS Fluoxetine Hcl 20 Mg Capsule 1 Cap PO DAILY Symbyax 6-50 Mg Capsule (Olanzapine/Fluoxetine Hcl) 1 Each Capsule 1 Each PO Vitals/I & O Vital Sign - Last 24 Hours 03/28/18 03/28/18 03/28/18 03/28/18 11:00 15:00 19:00 20:10 Temp 97.5 97.2 97.6 97.5 97.2 97.6 Pulse 72 77 82 Resp 18 18 18 B/P (MAP) 135/74 (94) 131/68 (89) 113/70 (84) Pulse Ox 99 95 99 O2 Delivery Room Air Room Air Room Air Room Air 03/28/18 03/28/18 03/29/18 03/29/18 20:31 22:48 03:00 07:00 Temp 97.6 97.9 96.4 97.6 97.9 96.4 Pulse 82 76 73 67 Resp 18 18 16 B/P (MAP) 113/70 101/43 (62) 142/76 (98) 111/66 (81) Pulse Ox 91 99 94 O2 Delivery Room Air Room Air Room Air 03/29/18 03/29/18 03/29/18 08:00 08:04 08:05 Pulse 67 67 B/P (MAP) 111/66 111/66 O2 Delivery Room Air Intake and Output 03/28/18 03/28/18 03/29/18 15:00 23:00 07:00 Intake Total 820 ml 840 ml Output Total 500 ml 400 ml Balance 820 ml 340 ml -400 ml NILDA DASILVA MD Mar 29, 2018 10:41
[2018-03-29 11:00] VITALS: BP 107/61
--- NOTE | 2018-03-29 13:42 | EEG ---
DATE OF SERVICE: 03/28/2018 EEG NUMBER: [id number] OBJECTIVE: This is a 57-year-old male patient with history of alcohol intoxication. EEG was requested to evaluate cerebral activity and help rule out seizures. METHODS: Twenty electrodes were applied according to the international 10-20 electrode placement system. EKG monitoring, hyperventilation, intermittent photic stimulation, monopolar and bipolar montages are routinely utilized. The record was obtained on a digital system with video monitoring. FINDINGS: 1. Background: The patient was recorded in the awake and drowsy states. No sleep state was recorded. The overall background amplitude is 10-20 microvolts. A posterior dominant rhythm of 8-9 Hz is observed. 2. Abnormalities: No specific epileptiform discharge or electrographic seizure is seen. No focal or diffuse slowing. 3. Activation: Hyperventilation was performed with good efforts and normal response. Intermittent photic stimulation was performed with photic driving. No specific epileptiform discharge or electrographic seizure induced by hyperventilation or intermittent photic stimulation. IMPRESSION: This EEG is a normal study for the awake and drowsy states. No sleep state was recorded. No focal, lateralizing, specific epileptiform discharge or electrographic seizure is seen. BRANDIN CARLSON MD DR: EDDIE/little JOB#: [id number] / [id number] SERA
[2018-03-29 15:00] VITALS: BP 115/78
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
[2018-03-29 19:00] VITALS: BP 131/81
[2018-03-29] MEDS: OLANZapine 5 MG TABLET PO SCH (20:24)
[2018-03-29] MEDS: NAPROXEN 500 MG TABLET PO PRN (20:29)
[2018-03-29] MEDS: traZODone 100 MG TABLET. PO PRN (22:31)
[2018-03-29 23:00] VITALS: BP 121/74
[2018-03-30 03:00] VITALS: BP 126/80
[2018-03-30 07:00] VITALS: BP 121/73
[2018-03-30] MEDS: FLUoxetine HCL 20 MG CAPSULE PO SCH (08:21)
[2018-03-30] MEDS: THIAMINE 100 MG TABLET. PO SCH (08:21)
[2018-03-30] MEDS: amLODIPine BESYLATE 10 MG TABLET PO SCH (08:21)
[2018-03-30] MEDS: PANTOPRAZOLE 40 MG TABLET.DR. PO SCH (08:22)
[2018-03-30] MEDS: FOLIC ACID 1 MG TABLET. PO SCH (08:22)
[2018-03-30] MEDS: LABETALOL HCL 200 MG TABLET PO SCH (08:22)
[2018-03-30] MEDS: NICOTINE 21MG PATCH. TD SCH (08:23)
[2018-03-30] MEDS: MAGNESIUM OXIDE 400 MG TABLET PO SCH (08:24)
--- NOTE | 2018-03-30 10:57 | PDOC ---
PROGRESS NOTES Chief Complaint Chief Complaint 1-mental status change and ? syncope, likely ETOH intoxication 2-hypomagnesemia replaced 3-lactic acidosis hydrated 4-alcoholic liver disease/ hepatitis 5-depression 6-HTN 7-hx brain aneurysm 8-COPD 9- smoker 10-Substance abuse 11- Depressed fracture of the zygomatic arch on the left was not seen previously and appears acute. need to see maxillary surgeon 12 syncope most probably alcohol blackout. Telemetry did not show any significant arrhythmias. 2-D echo on 2014 showed normal LV systolic function. Plan for repeating 2-D echocardiogram as an outpatient to rule out structural abnormalities. 13 Chest pain with atypical features, EEG ok home today go to AA DAILY History of Present Illness History of Present Illness feels much better, has been up to bathroom, will ask pt to evaluate safety to go home, neurology consult pending Vitals Vitals Vital Signs Date Time Temp Pulse Resp B/P (MAP) Pulse Ox O2 Delivery O2 Flow Rate FiO2 03/30/18 08:22 84 121/73 03/30/18 07:45 Room Air 03/30/18 07:00 97.8 14 96 97.8 Physical Exam General: Alert, Oriented X3, Cooperative, No acute distress, Other (left zygomatic area tender) Heart: Regular rate, Normal S1, Normal S2, No murmurs Lungs: Clear Abdomen: Normal bowel sounds, Soft, No tenderness Extremities: No cyanosis, No edema Skin: No significant lesion Assessment and Plan Assessmemt and Plan Problems Medical Problems: (1) Altered mental status Status: Acute Comment Review of Relevant I have reviewed the following items robby (where applicable) has been applied. Labs Laboratory Tests Test 03/29/18 07:53 White Blood Count 7.1 x10^3/uL (4.0-11.0) Red Blood Count 3.54 x10^6/uL (4.30-5.70) Hemoglobin 12.6 g/dL (13.0-17.5) Hematocrit 36.2 % (39.0-53.0) Mean Corpuscular Volume 102 fL (79-100) Mean Corpuscular Hemoglobin 36 pg (25-35) Mean Corpuscular Hemoglobin Concent 35 g/dL (31-37) Red Cell Distribution Width 13.4 % (11.5-14.5) Platelet Count 362 x10^3/uL (140-400) Neutrophils (%) (Auto) 55 % (31-73) Lymphocytes (%) (Auto) 34 % (24-48) Monocytes (%) (Auto) 9 % (0-9) Eosinophils (%) (Auto) 2 % (0-3) Basophils (%) (Auto) 1 % (0-3) Neutrophils # (Auto) 3.9 x10^3uL (1.8-7.7) Lymphocytes # (Auto) 2.4 x10^3/uL (1.0-4.8) Monocytes # (Auto) 0.7 x10^3/uL (0.0-1.1) Eosinophils # (Auto) 0.1 x10^3/uL (0.0-0.7) Basophils # (Auto) 0.1 x10^3/uL (0.0-0.2) Sodium Level 139 mmol/L (136-145) Potassium Level 4.2 mmol/L (3.5-5.1) Chloride Level 106 mmol/L (98-107) Carbon Dioxide Level 28 mmol/L (21-32) Anion Gap 5 (6-14) Blood Urea Nitrogen 17 mg/dL (8-26) Creatinine 1.3 mg/dL (0.7-1.3) Estimated GFR (Cockcroft-Gault) 69.1 BUN/Creatinine Ratio 13 (6-20) Glucose Level 89 mg/dL (70-99) Calcium Level 8.8 mg/dL (8.5-10.1) Total Bilirubin 0.4 mg/dL (0.2-1.0) Aspartate Amino Transf (AST/SGOT) 66 U/L (15-37) Alanine Aminotransferase (ALT/SGPT) 106 U/L (16-63) Alkaline Phosphatase 71 U/L (46-116) Total Protein 6.9 g/dL (6.4-8.2) Albumin 3.3 g/dL (3.4-5.0) Albumin/Globulin Ratio 0.9 (1.0-1.7) Medications Current Medications Multivitamins 10 ml/Thiamine HCl 100 mg/Folic Acid 1 mg/Sodium Chloride 1,011.2 ml @ 1,000 mls/ hr 1X ONCE IV Last administered on 03/24/18at 20:05; Start at 20:00; Stop 03/24/18 at 21:00; Status DC Ondansetron HCl (Zofran) 4 mg PRN Q8HRS PRN IV NAUSEA/VOMITING 1ST CHOICE; Start 03/25/18 at 00:30; Stop 03/26/18 at 00:29; Status DC Acetaminophen (Tylenol) 650 mg PRN Q4HRS PRN PO FEVER Last administered on 03/25 18:54; Start 03/25/18 at 00:30; Stop 03/26/18 at 00:29; Status DC Amlodipine Besylate (Norvasc) 10 mg DAILY PO Last administered on 03/30/18 08: 21; Start 03/25/18 at 11:30 Fluoxetine HCl (PROzac) 20 mg DAILY PO Last administered on 03/30/18 08:21; Start 03/25/18 at 11:30 Folic Acid (Folic Acid) 1 mg DAILY PO Last administered on 03/30/18 08:22; Start 03/25/18 at 11:30 Trazodone HCl (Desyrel) 100 mg PRN QHS PRN PO INSOMNIA Last administered on 22:31; Start 03/25/18 at 11:15 Labetalol HCl (Trandate) 200 mg BID PO Last administered on 03/30/18 08:22; Start 03/25/18 at 11:30 Naproxen (Naprosyn) 500 mg PRN BID PRN PO INFLAMMATION/PAIN Last administered on 03/29/18 20:29; Start 03/25/18 at 11:30 Nicotine (Nicoderm Cq 21mg) 1 patch DAILY TD Last administered on 03/30/18 08: 23; Start 03/25/18 at 11:30 Olanzapine (ZyPREXA) 20 mg QHS PO Last administered on 03/29/18 20:24; Start 03/25/18 at 21:00 Thiamine Mononitrate (Vitamin B-1) 100 mg DAILY PO Last administered on 08:21; Start 03/25/18 at 11:30 Magnesium Oxide (Magnesium Oxide) 400 mg BID PO Last administered on 03/30/18 08:24; Start 03/25/18 at 12:30 Sodium Chloride 1,000 ml @ 1,000 mls/hr 1X ONCE IV Last administered on 8/18/ 18at 13:39; Start 03/25/18 at 12:00; Stop 03/25/18 at 12:59; Status DC Pantoprazole Sodium (Protonix) 40 mg DAILYAC PO Last administered on 03/30/18at 08:22; Start 03/25/18 at 12:30 Lorazepam (Ativan) 2 mg Q6H PO Last administered on 03/26/18at 23:38; Start at 17:30; Stop 03/26/18 at 23:31; Status DC Active Scripts Active Naproxen 500 Mg Tablet 1 Tab PO BID PRN Vitamin B-1 (Thiamine Hcl) 100 Mg Tablet 100 Mg PO DAILY Trandate (Labetalol Hcl) 200 Mg Tablet 200 Mg PO BID 30 Days Folic Acid 1 Mg Tablet 1 Mg PO DAILY Norvasc (Amlodipine Besylate) 10 Mg Tablet 10 Mg PO DAILY 30 Days Reported NICODERM CQ 21mg (Nicotine) 1 Each Patch.td24 1 Patch TP DAILY Trazodone Hcl 100 Mg Tablet 1 Tab PO PRN QHS PRN Zyprexa (Olanzapine) 20 Mg Tablet 1 Tab PO QHS Fluoxetine Hcl 20 Mg Capsule 1 Cap PO DAILY Symbyax 6-50 Mg Capsule (Olanzapine/Fluoxetine Hcl) 1 Each Capsule 1 Each PO Vitals/I & O Vital Sign - Last 24 Hours 03/29/18 03/29/18 03/29/18 03/29/18 11:00 15:00 15:00 19:00 Temp 97.7 96.6 96.6 98.3 97.7 96.6 96.6 98.3 Pulse 86 67 67 82 Resp 16 16 16 18 B/P (MAP) 107/61 (76) 115/78 (90) 115/78 (90) 131/81 (98) Pulse Ox 97 97 97 98 O2 Delivery Room Air Room Air Room Air 03/29/18 03/29/18 03/29/18 03/30/18 20:00 20:24 23:00 03:00 Temp 98.6 98.2 98.6 98.2 Pulse 82 79 84 Resp 18 18 B/P (MAP) 131/81 121/74 (90) 126/80 (95) Pulse Ox 96 96 O2 Delivery Room Air 03/30/18 03/30/18 03/30/18 03/30/18 07:00 07:45 08:21 08:22 Temp 97.8 97.8 Pulse 84 84 84 Resp 14 B/P (MAP) 121/73 (89) 121/73 121/73 Pulse Ox 96 O2 Delivery Room Air Room Air Intake and Output 03/29/18 03/29/18 03/30/18 15:00 23:00 07:00 Intake Total 340 ml 1000 ml 960 ml Output Total 852 ml Balance 340 ml 1000 ml 108 ml NILDA DASILVA MD Mar 30, 2018 10:57
[2018-03-30 11:00] VITALS: BP 97/71
--- NOTE | 2018-03-30 13:49 | DISCH ---
DISCHARGE INSTRUCTIONS Condition on Discharge Condition on Discharge: Guarded Activity After Discharge Activity Instructions for Disc: Activity as tolerated Lifting Instructions after Dis: No heavy lifting, No pulling or pushing, Do not lift >10 pounds Exercise Instruction after Dis: Walk 10 min, 3 x per day Driving Instructions after Dis: Do not drive Diet after Discharge Diet after Discharge: Cardiac Checks after Discharge Checks after discharge: Check blood press - daily Contacting the DR. after DC Call your doctor for: If your condition worsens NILDA DASILVA MD Mar 30, 2018 13:49
--- NOTE | 2018-03-30 13:49 | PDOC3 ---
Discharge Summary Date of Admission: Mar 25, 2018 Date of Discharge: Mar 30, 2018 Follow-Up: 3-5 days Admitting Diagnosis comment: DISCHARGE DIAGNOSIS Chief Complaint 1-mental status change and ? syncope, likely ETOH intoxication 2-hypomagnesemia replaced 3-lactic acidosis hydrated 4-alcoholic liver disease/ hepatitis 5-depression 6-HTN 7-hx brain aneurysm 8-COPD 9- smoker 10-Substance abuse 11- Depressed fracture of the zygomatic arch on the left was not seen previously and appears acute. need to see maxillary surgeon 12 syncope most probably alcohol blackout. Telemetry did not show any significant arrhythmias. 2-D echo on 2014 showed normal LV systolic function. Plan for repeating 2-D echocardiogram as an outpatient to rule out structural abnormalities. 13 Chest pain with atypical features, EEG ok home today go to AA DAILY SEE ENT BETTY History of Present Illness History of Present Illness feels much better, has been up to bathroom, Vitals Vitals Vital Signs Date Time Temp Pulse Resp B/P (MAP) Pulse Ox O2 Delivery O2 Flow Rate FiO2 03/30/18 08:22 84 121/73 03/30/18 07:45 Room Air 03/30/18 07:00 97.8 14 96 97.8 Physical Exam General: Alert, Oriented X3, Cooperative, No acute distress, Other (left zygomatic area LESS tender) Heart: Regular rate, Normal S1, Normal S2, No murmurs Lungs: Clear Abdomen: Normal bowel sounds, Soft, No tenderness Extremities: No cyanosis, No edema Skin: No significant lesion FINAL DIAGNOSIS Problems Medical Problems: (1) Altered mental status Status: Acute Brief Hospital Course Mr. Mcdonnell is a 57 old [sex] who presented with [ALCOHOL ABUSE, SYNCOPE ] CONDITION AT DISCHARGE: Improved Discharge Medications Current Medications Multivitamins 10 ml/Thiamine HCl 100 mg/Folic Acid 1 mg/Sodium Chloride 1,011.2 ml @ 1,000 mls/ hr 1X ONCE IV Last administered on 03/24/18at 20:05; Start at 20:00; Stop 03/24/18 at 21:00; Status DC Ondansetron HCl (Zofran) 4 mg PRN Q8HRS PRN IV NAUSEA/VOMITING 1ST CHOICE; Start 03/25/18 at 00:30; Stop 03/26/18 at 00:29; Status DC Acetaminophen (Tylenol) 650 mg PRN Q4HRS PRN PO FEVER Last administered on 03/25 18:54; Start 03/25/18 at 00:30; Stop 03/26/18 at 00:29; Status DC Amlodipine Besylate (Norvasc) 10 mg DAILY PO Last administered on 03/30/18 08: 21; Start 03/25/18 at 11:30 Fluoxetine HCl (PROzac) 20 mg DAILY PO Last administered on 03/30/18 08:21; Start 03/25/18 at 11:30 Folic Acid (Folic Acid) 1 mg DAILY PO Last administered on 03/30/18 08:22; Start 03/25/18 at 11:30 Trazodone HCl (Desyrel) 100 mg PRN QHS PRN PO INSOMNIA Last administered on 22:31; Start 03/25/18 at 11:15 Labetalol HCl (Trandate) 200 mg BID PO Last administered on 03/30/18 08:22; Start 03/25/18 at 11:30 Naproxen (Naprosyn) 500 mg PRN BID PRN PO INFLAMMATION/PAIN Last administered on 03/29/18 20:29; Start 03/25/18 at 11:30 Nicotine (Nicoderm Cq 21mg) 1 patch DAILY TD Last administered on 03/30/18 08: 23; Start 03/25/18 at 11:30 Olanzapine (ZyPREXA) 20 mg QHS PO Last administered on 03/29/18 20:24; Start 03/25/18 at 21:00 Thiamine Mononitrate (Vitamin B-1) 100 mg DAILY PO Last administered on 08:21; Start 03/25/18 at 11:30 Magnesium Oxide (Magnesium Oxide) 400 mg BID PO Last administered on 03/30/18 08:24; Start 03/25/18 at 12:30 Sodium Chloride 1,000 ml @ 1,000 mls/hr 1X ONCE IV Last administered on 13:39; Start 03/25/18 at 12:00; Stop 03/25/18 at 12:59; Status DC Pantoprazole Sodium (Protonix) 40 mg DAILYAC PO Last administered on 8/23/18at 08:22; Start 03/25/18 at 12:30 Lorazepam (Ativan) 2 mg Q6H PO Last administered on 03/26/18at 23:38; Start at 17:30; Stop 03/26/18 at 23:31; Status DC Active Scripts Active Naproxen 500 Mg Tablet 1 Tab PO BID PRN Vitamin B-1 (Thiamine Hcl) 100 Mg Tablet 100 Mg PO DAILY Trandate (Labetalol Hcl) 200 Mg Tablet 200 Mg PO BID 30 Days Folic Acid 1 Mg Tablet 1 Mg PO DAILY Norvasc (Amlodipine Besylate) 10 Mg Tablet 10 Mg PO DAILY 30 Days Reported NICODERM CQ 21mg (Nicotine) 1 Each Patch.td24 1 Patch TP DAILY Trazodone Hcl 100 Mg Tablet 1 Tab PO PRN QHS PRN Zyprexa (Olanzapine) 20 Mg Tablet 1 Tab PO QHS Fluoxetine Hcl 20 Mg Capsule 1 Cap PO DAILY Symbyax 6-50 Mg Capsule (Olanzapine/Fluoxetine Hcl) 1 Each Capsule 1 Each PO Vital Signs Vital Signs Date Time Temp Pulse Resp B/P (MAP) Pulse Ox O2 Delivery O2 Flow Rate FiO2 03/30/18 11:00 98.3 84 14 97/71 (80) 96 Room Air 98.3 Labs Laboratory Tests Test 03/29/18 07:53 White Blood Count 7.1 x10^3/uL (4.0-11.0) Red Blood Count 3.54 x10^6/uL (4.30-5.70) Hemoglobin 12.6 g/dL (13.0-17.5) Hematocrit 36.2 % (39.0-53.0) Mean Corpuscular Volume 102 fL (79-100) Mean Corpuscular Hemoglobin 36 pg (25-35) Mean Corpuscular Hemoglobin Concent 35 g/dL (31-37) Red Cell Distribution Width 13.4 % (11.5-14.5) Platelet Count 362 x10^3/uL (140-400) Neutrophils (%) (Auto) 55 % (31-73) Lymphocytes (%) (Auto) 34 % (24-48) Monocytes (%) (Auto) 9 % (0-9) Eosinophils (%) (Auto) 2 % (0-3) Basophils (%) (Auto) 1 % (0-3) Neutrophils # (Auto) 3.9 x10^3uL (1.8-7.7) Lymphocytes # (Auto) 2.4 x10^3/uL (1.0-4.8) Monocytes # (Auto) 0.7 x10^3/uL (0.0-1.1) Eosinophils # (Auto) 0.1 x10^3/uL (0.0-0.7) Basophils # (Auto) 0.1 x10^3/uL (0.0-0.2) Sodium Level 139 mmol/L (136-145) Potassium Level 4.2 mmol/L (3.5-5.1) Chloride Level 106 mmol/L (98-107) Carbon Dioxide Level 28 mmol/L (21-32) Anion Gap 5 (6-14) Blood Urea Nitrogen 17 mg/dL (8-26) Creatinine 1.3 mg/dL (0.7-1.3) Estimated GFR (Cockcroft-Gault) 69.1 BUN/Creatinine Ratio 13 (6-20) Glucose Level 89 mg/dL (70-99) Calcium Level 8.8 mg/dL (8.5-10.1) Total Bilirubin 0.4 mg/dL (0.2-1.0) Aspartate Amino Transf (AST/SGOT) 66 U/L (15-37) Alanine Aminotransferase (ALT/SGPT) 106 U/L (16-63) Alkaline Phosphatase 71 U/L (46-116) Total Protein 6.9 g/dL (6.4-8.2) Albumin 3.3 g/dL (3.4-5.0) Albumin/Globulin Ratio 0.9 (1.0-1.7) Allergies Allergies Coded Allergies Type Severity Reaction Last Updated Verified No Known Drug Allergies 12/24/14 No Disposition/Orders: D/C to Home Patient Instructions D/C PLANNING 33 MIN NILDA DASILVA MD Mar 30, 2018 13:49
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
== END 2018-03-30 17:40 | disposition home or self-care (01) | DRG 157 ==
LOC: ER 19:17 → 5 SOUTH 03-25 00:20
PROVIDERS: ADMIT Internal Medicine; ATTEND Internal Medicine
PROC: HZ2ZZZZ Detoxification Services for Substance Abuse Treatment (ICD-10-PCS; principal; 2018-03-25)
DX: S02.40FA Zygomatic fracture, left side, initial encounter for closed fracture (principal); G92 Toxic encephalopathy; E87.2 Acidosis; F10.129 Alcohol abuse with intoxication, unspecified; R07.89 Other chest pain; E83.42 Hypomagnesemia; F17.210 Nicotine dependence, cigarettes, uncomplicated; F32.9 Major depressive disorder, single episode, unspecified; I10 Essential (primary) hypertension; I67.1 Cerebral aneurysm, nonruptured; J44.9 Chronic obstructive pulmonary disease, unspecified; K70.9 Alcoholic liver disease, unspecified; K75.9 Inflammatory liver disease, unspecified; Z82.49 Family history of ischemic heart disease and other diseases of the circulatory system; F41.9 Anxiety disorder, unspecified; M19.90 Unspecified osteoarthritis, unspecified site; X58.XXXA Exposure to other specified factors, initial encounter; Y93.89 Activity, other specified; Y92.89 Other specified places as the place of occurrence of the external cause; Y99.8 Other external cause status
CPT/HCPCS: 36415; 70450; 71045; 80053; 80307; 81001; 82140; 83605; 83735; 85025; 85027; 85610; 85651; 93005; 93880; 95816; 96365; G0480; J7030; 97110; 97116; 99285-25; G0479

== ENCOUNTER → 2018-05-15 | Outpatient (CLI) | payer OTHER ==
[~2018-05-15] MED LIST changes: +NICO1PAT21 TP; +REGADENOSON 0.4 MG/5 ML DISP.SYRIN. IV ONE; +TRAZ-86 PO
--- NOTE | 2018-05-15 11:52 | RAD ---
MR#: [id number] Date of Study: 05/15/2018 Ordering Physician: ROSCOE WALLACE, Referring Physician: LAUREEN GONZALEZ Tech: RT Yang (R) (N) APPROVED REPORT Test Type: Pharmacological Stress Nurse/Tech: Skye Vargas R.N. Test Indications: Chest pain Cardiac History: Family history, Hypertension, COPD Medications: See Electronic Medical Record Medical History: See Electronic Medical Record Resting ECG: NSR Resting Heart Rate: 100 bpm Resting Blood Pressure: 201/105mmHg Pretest Chest Pain: No chest pain Nurse/Tech Notes S1S2, lungs with coarse breath sounds, has productive cough. States he has been out of his BP meds f or a month so not taking any meds. states he does not know the name of the BP med he was taking Consent: The procedure was explained to the patient in lay terms. Informed consent was witnessed. Ari woo was entered into [facility]. History and Stress Test performed by Skye Vargas R.N. Pharm. Details Pharmacologic stress testing was performed using 0.4mg per 5ml of regadenoson given intravenously ove r 7-10 seconds. Stress Symptoms Dyspnea POST EXERCISE Reason for Termination: Infusion complete Target HR: 139 Max HR: 119 bpm Max Blood Pressure: 183/94mmHg Blood Pressure response to exercise: Normal blood pressure response during stress. Chest Pain: No. Arrhythmia: No. ST Change: No. INTERPRETATION Stress EKG Conclusion: The resting EKG shows a sinus rhythm with nonspecific ST-T wave changes. The stress EKG shows no significant changes from baseline. No EKG evidence of stress-induced ischemia. Imaging Protocol IMAGE PROTOCOL: Rest Tc-99m/stress Tc-99m 1 day Rest: Stress: Viability: Radiopharm.Tc99m [id number] Sestamibi Rryp97rNx 33mCi Duration 13min. 13min. Img Date 05/15/2018 05/15/2018 Inj-Img [id number]. 60min. Rest Admin Site:IV - Right AntecubitalAdministrator:RT Yang (R)(N) Stress Admin Site: IV - Right AntecubitalAdministrator: ARIANNA Encinas STRESS DATA End Diast. Vol.74.0mlLVEDV index BSA40.0ml End Syst. Vol.19.0mlLVESV index BSA10.0ml Myocardial Mldj009.0gEject. Ucttpfla67.0% Stress Scores Regional WT2.00Summed WT15.00 Regional WM0.00Summed WM0.00 LV Perfusion The stress scans showed no significant defects. The rest scans showed no significant defects. Nuclear imaging shows no reversible ischemia or infarct. Wall Motion Left ventricular systolic function is normal with an ejection fraction of greater than 70%. LV Perf. Quant 17 Seg. SSS0.00 17 Seg. SRS2.00 17 Seg. SDS0.00 Stress Defect Extent (% LAD)0.00Rest Defect Extent (% LAD)1.30Rev. Defect Extent (% LAD)0.00 Stress Defect Extent (% LCX) 0.00Rest Defect Extent (% LCX)0.00Rev. Defect Extent (% LCX)0.00 Stress Defect Extent (% RCA)0.00Rest Defect Extent (% RCA)0.00Rev. Defect Extent (% RCA)0.00 Stress Defect Extent (% SERINA)0.00Rest Defect Extent (% SERINA)2.20Rev. Defect Extent (% SERINA)0.00 Conclusion 1. No EKG evidence of stressed induced ischemia. 2. Nuclear imaging shows no reversible ischemia or infarct. 3. Normal left ventricular systolic function with an ejection fraction of greater than 70%. 4. Low risk Lexiscan nuclear stress test. Signed by : Roscoe Wallace MD Electronically Approved : 05/15/2018 11:52:06
== END | disposition home or self-care (01) ==
LOC: NM 08:01
PROVIDERS: ATTEND Internal Medicine Cardiovascular Disease
DX: R07.9 Chest pain, unspecified (principal); J44.9 Chronic obstructive pulmonary disease, unspecified; Z82.49 Family history of ischemic heart disease and other diseases of the circulatory system
CPT/HCPCS: 78452; 93017; 96374; 96375; 96376; A9500; J2785

== ENCOUNTER 2019-04-06 05:16 | Emergency (ER) | payer MEDICAID ==
[~2019-04-06] VITALS: Ht 188 cm; Wt 72.6 kg
[~2019-04-06 05:16] MED LIST changes: +ALBU2.5V8 INH; +LABE200T4 PO; -REGADENOSON 0.4 MG/5 ML DISP.SYRIN. IV ONE
--- NOTE | 2019-04-06 05:37 | PHYS DOC ---
Past Medical History Past Medical History: COPD, Depression, Hypertension Additional Past Medical Histor: TBI (SHIVANI MARS Jr., DO) Past Surgical History: Other Additional Past Surgical Histo: BRAIN SURGERY (SHIVANI MARS Jr., DO) Alcohol Use: Occasionally Drug Use: None, Cocaine (SHIVANI MARS Jr., DO) Adult General Chief Complaint Chief Complaint: ALCOHOL INTOXICATION HPI HPI Patient is a 58-year-old male who presents via EMS with report of having been out in the rain and intoxicated. Patient does admit to drinking an undisclosed amount of alcohol tonight. Patient reportedly had been picked up by police and they ultimately called EMS to bring patient to ER as patient was altered. Patient does admit to a cough. Additional history is somewhat limited as patient is very poor historian at this time.[] (SHIVANI MARS Jr., DO) Review of Systems Review of Systems Constitutional: Denies fever or chills [] Respiratory: Positive cough without shortness of breath [] Cardiovascular: No additional information not addressed in HPI [] GI: Denies abdominal pain, nausea, vomiting or diarrhea [] Musculoskeletal: Denies back pain or joint pain [] Integument: Denies rash or skin lesions [] Neurologic: Denies headache, focal weakness or sensory changes [] All other systems were reviewed and found to be within normal limits, except as documented in this note. (SHIVANI MARS Jr., DO) Current Medications Current Medications Current Medications Medications (Trade) Dose Ordered Sig/Beverly Start Time Stop Time Status Last Admin Dose Admin Multivitamins 10 ml/Thiamine HCl 100 mg/Folic Acid 1 mg/Sodium Chloride 1,011.2 ml @ 1,000 mls/ hr 1X ONCE 04/06/19 06:00 04/06/19 07:00 DC 04/06/19 06:03 1,000 MLS/HR Ondansetron HCl (Zofran) 4 mg 1X ONCE 04/06/19 06:00 04/06/19 06:01 DC 04/06/19 06:03 4 MG (GAETANO BECERRA DO) Allergies Allergies Allergies Coded Allergies Type Severity Reaction Last Updated Verified No Known Drug Allergies 12/24/14 No (GAETANO BECERRA DO) Physical Exam Physical Exam Constitutional: Well developed, well nourished, with smell of alcohol on patient's breath, non-toxic appearance. [] HENT: Normocephalic, atraumatic, bilateral external ears normal, oropharynx moist, no oral exudates, nose normal. [] Eyes: PERRLA, EOMI, conjunctiva normal, no discharge. [] Neck: Normal range of motion, no tenderness, supple, no stridor. [] Cardiovascular: Mildly tachycardic rate with regular rhythm[] Lungs & Thorax: Coarse rhonchi are noted bilaterally to auscultation [] Abdomen: Bowel sounds normal, soft, no tenderness. [] Skin: Warm, dry, no erythema, no rash. [] Extremities: No tenderness, no cyanosis, no clubbing, ROM intact, no edema. [] Neurologic: Awake and alert, no focal deficits noted. [] (SHIVANI MARS Jr. DO) Current Patient Data Vital Signs Vital Signs Date Time Temp Pulse Resp B/P (MAP) Pulse Ox O2 Delivery O2 Flow Rate FiO2 04/06/19 07:41 94 16 86/63 (71) Room Air 04/06/19 05:16 98.0 98 98.0 (GAETANO BECERRA DO) Lab Values Laboratory Tests Test 04/06/19 06:03 04/06/19 06:50 White Blood Count 9.0 x10^3/uL (4.0-11.0) Red Blood Count 3.90 x10^6/uL (4.30-5.70) L Hemoglobin 13.5 g/dL (13.0-17.5) Hematocrit 39.5 % (39.0-53.0) Mean Corpuscular Volume 102 fL (79-100) H Mean Corpuscular Hemoglobin 35 pg (25-35) Mean Corpuscular Hemoglobin Concent 34 g/dL (31-37) Red Cell Distribution Width 13.6 % (11.5-14.5) Platelet Count 352 x10^3/uL (140-400) Neutrophils (%) (Auto) 43 % (31-73) Lymphocytes (%) (Auto) 48 % (24-48) Monocytes (%) (Auto) 7 % (0-9) Eosinophils (%) (Auto) 1 % (0-3) Basophils (%) (Auto) 1 % (0-3) Neutrophils # (Auto) 3.9 x10^3/uL (1.8-7.7) Lymphocytes # (Auto) 4.3 x10^3/uL (1.0-4.8) Monocytes # (Auto) 0.6 x10^3/uL (0.0-1.1) Eosinophils # (Auto) 0.1 x10^3/uL (0.0-0.7) Basophils # (Auto) 0.1 x10^3/uL (0.0-0.2) Ethyl Alcohol Level 362 mg/dL (0-10) H Sodium Level 139 mmol/L (136-145) Potassium Level 4.1 mmol/L (3.5-5.1) Chloride Level 101 mmol/L (98-107) Carbon Dioxide Level 25 mmol/L (21-32) Anion Gap 13 (6-14) Blood Urea Nitrogen 17 mg/dL (8-26) Creatinine 1.2 mg/dL (0.7-1.3) Estimated GFR (Cockcroft-Gault) 75.5 Glucose Level 102 mg/dL (70-99) H Calcium Level 8.6 mg/dL (8.5-10.1) Magnesium Level 1.6 mg/dL (1.8-2.4) L Total Bilirubin 0.2 mg/dL (0.2-1.0) Direct Bilirubin 0.1 mg/dL (0.0-0.2) Aspartate Amino Transferase (AST) 37 U/L (15-37) Alanine Aminotransferase (ALT) 35 U/L (16-63) Alkaline Phosphatase 59 U/L (46-116) Total Protein 7.9 g/dL (6.4-8.2) Albumin 3.7 g/dL (3.4-5.0) Laboratory Tests 04/06/19 06:03 Laboratory Tests 04/06/19 06:50 (GAETANO BECERRA DO) EKG EKG [] (SHIVANI MARS Jr., DO) Radiology/Procedures Radiology/Procedures [] (SHIVANI MARS Jr., DO) Course & Med Decision Making Course & Med Decision Making Pertinent Labs and Imaging studies reviewed. (See chart for details) [] (SHIVANI MARS Jr., DO) Dragon Disclaimer Dragon Disclaimer This electronic medical record was generated, in whole or in part, using a voice recognition dictation system. (MARS,SHIVANI D Jr. DO) Departure Departure Impression: Primary Impression: Acute alcohol intoxication Disposition: HOME, SELF-CARE Condition: STABLE Referrals: NO PCP (PCP) FOLLOW UP WITH YOUR PCP Patient Instructions: Alcohol Intoxication, Alcohol Problems Problem Qualifiers Primary Impression: Acute alcohol intoxication Complication of substance-induced condition: uncomplicated Qualified Codes: F10.920 - Alcohol use, unspecified with intoxication, uncomplicated SHIVANI MARS Jr. DO Apr 06, 2019 05:36 GAETANO BECERRA DO Apr 06, 2019 12:14
[2019-04-06] MEDS ORDERED: MULTIVIT INFUSN,ADULT 4,VIT K 10 ML, THIAMINE INJ 100 MG, FOLIC ACID INJ 1 MG in IV NOR... IV ONE (06:00)
[2019-04-06] MEDS ORDERED: ONDANSETRON PF 4 MG/2 ML VIAL. IV ONE (06:00)
[2019-04-06 06:19] LABS: BASO # 0.1 x10^3/uL (0.0-0.2); BASO % 1 % (0-3); EOS # 0.1 x10^3/uL (0.0-0.7); EOS % 1 % (0-3); HEMATOCRIT 39.5 % (39.0-53.0); HEMOGLOBIN 13.5 g/dL (13.0-17.5); LYMPH # 4.3 x10^3/uL (1.0-4.8); LYMPH % 48 % (24-48); MEAN CORPUSCULAR HEMOGLOBIN 35 pg (25-35); MEAN CORPUSCULAR HGB CONC 34 g/dL (31-37); MEAN CORPUSCULAR VOLUME 102 fL (79-100); MONO # 0.6 x10^3/uL (0.0-1.1); MONO % 7 % (0-9); NEUT # 3.9 x10^3/uL (1.8-7.7); NEUT % 43 % (31-73); PLATELET COUNT 352 x10^3/uL (140-400); RED CELL DISTRIBUTION WIDTH 13.6 % (11.5-14.5)
[2019-04-06 07:11] LABS: CALCIUM 8.6 mg/dL (8.5-10.1); CREATININE 1.2 mg/dL (0.7-1.3); GFR 75.5; POTASSIUM 4.1 mmol/L (3.5-5.1)
--- NOTE | 2019-04-06 07:12 | RAD ---
Chest AP portable at 0533: Reason for examination: Cough. Comparison is made to previous study dated 01/25/2019. The heart size is normal. Mediastinum is unremarkable. Lung morales are clear. No acute bony abnormalities are seen. Impression: No acute cardiopulmonary disease. Electronically signed by: Grace Ventura MD (04/06/2019 7:09 AM) [facility]
[2019-04-06 07:24] LABS: ALBUMIN 3.7 g/dL (3.4-5.0); DIRECT BILIRUBIN 0.1 mg/dL (0.0-0.2); MAGNESIUM 1.6 mg/dL (1.8-2.4); TOTAL BILIRUBIN 0.2 mg/dL (0.2-1.0); TOTAL PROTEIN 7.9 g/dL (6.4-8.2)
[2019-04-06 12:13] VITALS: BP 115/73
== END 2019-04-06 14:00 | disposition home or self-care (01) ==
LOC: ER 05:16
DX: F10.129 Alcohol abuse with intoxication, unspecified (principal); Y90.8 Blood alcohol level of 240 mg/100 ml or more; R05 Cough; J44.9 Chronic obstructive pulmonary disease, unspecified; I10 Essential (primary) hypertension
CPT/HCPCS: 36415; 71045; 80048; 80076; 83735; 85025; 96365; 96375; 99285; G0480; J2405; J7030

== ENCOUNTER 2019-10-25 19:40 | Emergency (ER) | payer MEDICAID ==
[~2019-10-25] VITALS: Ht 180.3 cm; Wt 70.9 kg
[~2019-10-25 19:40] MED LIST changes: +FLUO20CA20 PO; -FLUO20CA8 PO; +TRAZ-123 PO; -TRAZ-86 PO
[2019-10-25 20:07] LABS: BASO % 1 % (0-3); EOS # 0.1 x10^3/uL (0.0-0.7); EOS % 1 % (0-3); HEMATOCRIT 37.2 % (39.0-53.0); HEMOGLOBIN 12.5 g/dL (13.0-17.5); LYMPH # 2.9 x10^3/uL (1.0-4.8); LYMPH % 40 % (24-48); MEAN CORPUSCULAR HEMOGLOBIN 34 pg (25-35); MEAN CORPUSCULAR HGB CONC 34 g/dL (31-37); MEAN CORPUSCULAR VOLUME 100 fL (79-100); MONO # 0.6 x10^3/uL (0.0-1.1); MONO % 8 % (0-9); NEUT # 3.8 x10^3/uL (1.8-7.7); NEUT % 51 % (31-73); PLATELET COUNT 252 x10^3/uL (140-400); RED BLOOD COUNT 3.72 x10^6/uL (4.30-5.70); RED CELL DISTRIBUTION WIDTH 13.8 % (11.5-14.5); WHITE BLOOD COUNT 7.4 x10^3/uL (4.0-11.0)
--- NOTE | 2019-10-25 20:10 | PHYS DOC ---
Past Medical History Past Medical History: COPD, Depression, Hypertension Additional Past Medical Histor: TBI, "brain anyrysm" Past Surgical History: Other Additional Past Surgical Histo: BRAIN SURGERY Smoking Status: Current Every Day Smoker Alcohol Use: Occasionally Additional Information: Last alcoholic drink was this afternoon. Drug Use: Cocaine Adult General Chief Complaint Chief Complaint: SHORTNESS OF BREATH [facility] HPI Patient is a 59 year old presents with the complaint of right sided rib pain. Patient states pain has been ongoing for 2-3 months. Pain worse with cough. Cough with green sputum production. Patient states he has had a cough for 2-3 months. Patients pain worse with movement and coughing and deep breaths. Denies pain when remaining still and without cough or breathing. Patient admits to drinking alcohol today. Patient is alert-- clinically sober. Ambulated into ER with steady gait. Review of Systems Review of Systems Constitutional: Denies fever or chills [] Eyes: Denies change in visual acuity, redness, or eye pain [] HENT: Denies nasal congestion or sore throat [] Respiratory: Denies cough or shortness of breath [] Cardiovascular: No additional information not addressed in HPI [] GI: Denies abdominal pain, nausea, vomiting, bloody stools or diarrhea [] : Denies dysuria or hematuria [] Musculoskeletal: Denies back pain or joint pain [] Integument: Denies rash or skin lesions [] Neurologic: Denies headache, focal weakness or sensory changes [] Endocrine: Denies polyuria or polydipsia [] All other systems were reviewed and found to be within normal limits, except as documented in this note. Current Medications Current Medications Current Medications Medications (Trade) Dose Ordered Sig/Beverly Start Time Stop Time Status Last Admin Dose Admin Albuterol/ Ipratropium (Duoneb) 3 ml 1X ONCE 10/25/19 20:15 10/25/19 20:16 DC 10/25/19 20:45 3 ML Allergies Allergies Allergies Coded Allergies Type Severity Reaction Last Updated Verified No Known Drug Allergies 12/24/14 No Physical Exam Physical Exam Review of systems: Constitutional symptoms- No fever, no chills. Eyes- No Discharge, No Visual Loss, Respiratory symptoms- No shortness of breath, expiratory wheezing, No Dyspnea on Exertion positive cough Cardiovascular Systems; No chest pain.No Palpitations, No syncope positive rib pain Gastrointestinal symptoms: NO abdominal pain, no nausea, no vomiting or diarrhea. Genitourinary symptoms: No dysuria. No vaginal bleeding. Musculoskeletal symptoms: No back pain or extremity pain.- right sided chest wall pain NEUROLOGICAL Symptoms: No headache, no generalized weakness; No focal Weakness, Current Patient Data Vital Signs Vital Signs Date Time Temp Pulse Resp B/P (MAP) Pulse Ox O2 Delivery O2 Flow Rate FiO2 10/25/19 20:46 99 Room Air 10/25/19 20:30 92 17 148/83 (104) 10/25/19 19:54 97.7 97.7 Lab Values Laboratory Tests Test 10/25/19 19:58 White Blood Count 7.4 x10^3/uL (4.0-11.0) Red Blood Count 3.72 x10^6/uL (4.30-5.70) L Hemoglobin 12.5 g/dL (13.0-17.5) L Hematocrit 37.2 % (39.0-53.0) L Mean Corpuscular Volume 100 fL (79-100) Mean Corpuscular Hemoglobin 34 pg (25-35) Mean Corpuscular Hemoglobin Concent 34 g/dL (31-37) Red Cell Distribution Width 13.8 % (11.5-14.5) Platelet Count 252 x10^3/uL (140-400) Neutrophils (%) (Auto) 51 % (31-73) Lymphocytes (%) (Auto) 40 % (24-48) Monocytes (%) (Auto) 8 % (0-9) Eosinophils (%) (Auto) 1 % (0-3) Basophils (%) (Auto) 1 % (0-3) Neutrophils # (Auto) 3.8 x10^3/uL (1.8-7.7) Lymphocytes # (Auto) 2.9 x10^3/uL (1.0-4.8) Monocytes # (Auto) 0.6 x10^3/uL (0.0-1.1) Eosinophils # (Auto) 0.1 x10^3/uL (0.0-0.7) Basophils # (Auto) 0.0 x10^3/uL (0.0-0.2) Sodium Level 138 mmol/L (136-145) Potassium Level 4.1 mmol/L (3.5-5.1) Chloride Level 100 mmol/L (98-107) Carbon Dioxide Level 26 mmol/L (21-32) Anion Gap 12 (6-14) Blood Urea Nitrogen 17 mg/dL (8-26) Creatinine 1.0 mg/dL (0.7-1.3) Estimated GFR (Cockcroft-Gault) 92.9 BUN/Creatinine Ratio 17 (6-20) Glucose Level 90 mg/dL (70-99) Calcium Level 8.8 mg/dL (8.5-10.1) Total Bilirubin 0.3 mg/dL (0.2-1.0) Aspartate Amino Transferase (AST) 32 U/L (15-37) Alanine Aminotransferase (ALT) 40 U/L (16-63) Alkaline Phosphatase 59 U/L (46-116) Troponin I Quantitative < 0.017 ng/mL (0.000-0.055) Total Protein 7.5 g/dL (6.4-8.2) Albumin 4.2 g/dL (3.4-5.0) Albumin/Globulin Ratio 1.3 (1.0-1.7) Laboratory Tests 10/25/19 19:58 Laboratory Tests 10/25/19 19:58 EKG EKG [] Interpretation Time: EKG time in 2006 heart rate 97 normal sinus rhythm no ST elevation or ST depression no acute [place] Radiology/Procedures Radiology/Procedures [] Impressions: xray negative Course & Med Decision Making Course & Med Decision Making Pertinent Labs and Imaging studies reviewed. (See chart for details) []Patient expressed with nursing that he is here just to be tested for covid -19 Labs and xray negative. Patient with copd. Dragon Disclaimer Dragon Disclaimer This electronic medical record was generated, in whole or in part, using a voice recognition dictation system. Departure Departure Impression: Primary Impression: Cough Additional Impressions: Costochondritis Bronchitis Disposition: 01 HOME, SELF-CARE Condition: STABLE Referrals: NO PCP (PCP) Patient Instructions: Bronchitis, Costochondritis Scripts Azithromycin (ZITHROMAX PACKET) 1 Gm Packet 1 PACKET PO ONCE, #1 PACKET take as direct 2 tablets on day 1 1 tablet on day 2-5 Prov: SABIHA NOONAN I DO 10/25/19 Problem Qualifiers SABIHA NOONAN I DO Oct 25, 2019 20:10
[2019-10-25 20:15] LABS: CALCIUM 8.8 mg/dL (8.5-10.1); GFR 92.9; POTASSIUM 4.1 mmol/L (3.5-5.1)
[2019-10-25] MEDS ORDERED: IPRATRPIUM/ALBUTEROL 0.5/2.5MG 3 ML NEBU. NEB ONE (20:15)
[2019-10-25 20:20] LABS: ALBUMIN 4.2 g/dL (3.4-5.0); ALBUMIN/GLOBULIN RATIO 1.3 (1.0-1.7); TOTAL BILIRUBIN 0.3 mg/dL (0.2-1.0); TOTAL PROTEIN 7.5 g/dL (6.4-8.2)
--- NOTE | 2019-10-25 20:48 | RAD ---
INDICATION: Cough COMPARISON: April 06, 2019 FINDINGS: Single view of chest obtained. Some disorganization of the pulmonary markings is again seen without a definite new region of focal airspace consolidation. Cardiac silhouette unremarkable IMPRESSION: * No definite focal airspace consolidation. Electronically signed by: Shawn Liu MD (10/25/2019 8:46 PM) [id number]
[2019-10-25] MEDS ORDERED: AZIT1PAC PO (20:49)
[2019-10-25 21:04] VITALS: BP 142/58
--- NOTE | 2019-10-26 06:13 | EKG ---
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
== END 2019-10-25 21:09 | disposition home or self-care (01) ==
LOC: ER 19:40
DX: J40 Bronchitis, not specified as acute or chronic (principal); M94.0 Chondrocostal junction syndrome [Tietze]; R05 Cough; R07.81 Pleurodynia; J44.9 Chronic obstructive pulmonary disease, unspecified; I10 Essential (primary) hypertension; F32.9 Major depressive disorder, single episode, unspecified; F17.200 Nicotine dependence, unspecified, uncomplicated; F10.10 Alcohol abuse, uncomplicated; Z98.890 Other specified postprocedural states; Z87.820 Personal history of traumatic brain injury
CPT/HCPCS: 36415; 71045; 80053; 84484; 85025; 93005; 94640; 99285

== ENCOUNTER 2020-05-08 19:20 | Emergency (ER) | payer MEDICAID ==
[~2020-05-08] VITALS: Ht 182.9 cm; Wt 81.8 kg
[~2020-05-08 19:20] MED LIST changes: +AZIT1PAC PO
[2020-05-08] MEDS ORDERED: IV NORMAL SALINE 1000ML BAG 1,000 ML IV ONE (19:30)
--- NOTE | 2020-05-08 19:33 | PHYS DOC ---
Past Medical History Past Medical History: COPD, Depression, Hypertension Additional Past Medical Histor: TBI, "brain anyrysm" Past Surgical History: Other Additional Past Surgical Histo: BRAIN SURGERY Smoking Status: Current Every Day Smoker Alcohol Use: Occasionally Drug Use: Cocaine General Adult EDM: Chief Complaint: ALCOHOL INTOXICATION HPI: HPI: The history was obtained from the patient and EMS. Patient is a 59-year-old male with PMH COPD, TBI, hypertension who presents with a chief complaint of found down. Per EMS there called by police because the patient was found down near a bus stop. Patient does endorse drinking multiple alcoholic beverages today. He is unable to tell me how much he has drank specifically. He states he wants to go home. Denies any pain related complaints. He is alert and oriented x3. Denies any drug use. States he does live at home alone. Denies chest pain or shortness of breath. Denies headache. Denies back pain. Denies abdominal pain. Denies any vomiting. States that he does drink daily. No other complaints. Review of Systems: Review of Systems: Constitutional: Denies fever or chills. [] Eyes: Denies change in visual acuity. [] HENT: Denies nasal congestion or sore throat. [] Respiratory: Denies cough or shortness of breath. [] Cardiovascular: Denies chest pain or edema. [] GI: Denies abdominal pain, nausea, vomiting, bloody stools or diarrhea. [] : Denies dysuria. [] Musculoskeletal: Denies back pain or joint pain. [] Integument: Denies rash. [] Neurologic: Denies headache, focal weakness or sensory changes. [] Endocrine: Denies polyuria or polydipsia. [] Lymphatic: Denies swollen glands. [] Psychiatric: Denies depression or anxiety. [] Heart Score: Risk Factors: Risk Factors: DM, Current or recent (<one month) smoker, HTN, HLP, family history of CAD, obesity. Risk Scores: Score 0 - 3: 2.5% MACE over next 6 weeks - Discharge Home Score 4 - 6: 20.3% MACE over next 6 weeks - Admit for Clinical Observation Score 7 - 10: 72.7% MACE over next 6 weeks - Early Invasive Strategies Allergies: Allergies: Allergies Coded Allergies Type Severity Reaction Last Updated Verified No Known Drug Allergies 12/24/14 No Physical Exam: PE: Constitutional: Well developed, well nourished, no acute distress, non-toxic appearance. [] HENT: Normocephalic, atraumatic, bilateral external ears normal, oropharynx moist, no oral exudates, nose normal. [] Eyes: PERRLA, EOMI, conjunctiva normal, no discharge. [] Neck: Normal range of motion, no tenderness, supple, no stridor. [] Cardiovascular:Heart rate regular rhythm, no murmur [] Lungs & Thorax: Bilateral breath sounds clear to auscultation [] Abdomen: soft, no tenderness, no masses, no pulsatile masses. [] Skin: Warm, dry, no erythema, no rash. [] Back: No tenderness, no CVA tenderness. [] Extremities: No tenderness, no cyanosis, no clubbing, ROM intact, no edema. [] Neurologic: Alert and oriented X 3, normal motor function, normal sensory function, no focal deficits noted. Slurred speech. Alert with intact cognitive function. No aphasia, dysarthria, or neglect. GCS 15. Pupils 3 mm briskly r eactive b/l. No APD present. Cranial nerves 2-12 grossly intact; no facial asymmetry present, tongue midline, shoulder shrugging strength intact. Strength 5/5 and symmetric throughout. Light touch sensation intact throughout. Cerebellar testing appropriate without evidence of dysdiadochokinesia. DTR's 2+ in all 4 extremities. Negative pronator drift bilaterally. Gait unsteady [] Psychologic: Affect normal, judgement normal, mood normal. [] Current Patient Data: Labs: Laboratory Tests Test 05/08/20 19:50 White Blood Count 8.6 x10^3/uL Red Blood Count 3.95 x10^6/uL Hemoglobin 13.7 g/dL Hematocrit 39.6 % Mean Corpuscular Volume 100 fL Mean Corpuscular Hemoglobin 35 pg Mean Corpuscular Hemoglobin Concent 34 g/dL Red Cell Distribution Width 13.4 % Platelet Count 318 x10^3/uL Neutrophils (%) (Auto) 56 % Lymphocytes (%) (Auto) 35 % Monocytes (%) (Auto) 7 % Eosinophils (%) (Auto) 1 % Basophils (%) (Auto) 1 % Neutrophils # (Auto) 4.8 x10^3/uL Lymphocytes # (Auto) 3.0 x10^3/uL Monocytes # (Auto) 0.6 x10^3/uL Eosinophils # (Auto) 0.1 x10^3/uL Basophils # (Auto) 0.1 x10^3/uL Sodium Level 135 mmol/L Potassium Level 3.7 mmol/L Chloride Level 99 mmol/L Carbon Dioxide Level 28 mmol/L Anion Gap 8 Blood Urea Nitrogen 19 mg/dL Creatinine 1.4 mg/dL Estimated GFR (Cockcroft-Gault) 63.0 BUN/Creatinine Ratio 14 Glucose Level 98 mg/dL Calcium Level 9.1 mg/dL Magnesium Level 1.9 mg/dL Total Bilirubin 0.3 mg/dL Aspartate Amino Transf (AST/SGOT) 36 U/L Alanine Aminotransferase (ALT/SGPT) 37 U/L Alkaline Phosphatase 70 U/L Creatine Kinase 165 U/L Total Protein 8.0 g/dL Albumin 3.7 g/dL Albumin/Globulin Ratio 0.9 Lipase 160 U/L Current Medications Medications (Trade) Dose Ordered Sig/Beverly Route PRN Reason Start Time Stop Time Status Last Admin Dose Admin Sodium Chloride 1,000 ml @ 2,000 mls/hr 1X ONCE IV 05/08/20 19:30 05/08/20 19:59 DC 05/08/20 19:56 Vital Signs: Vital Signs Date Time Temp Pulse Resp B/P (MAP) Pulse Ox O2 Delivery O2 Flow Rate FiO2 05/08/20 19:31 98.5 110 20 118/80 (93) 95 Room Air 98.5 EKG: EKG: EKG consistent with normal sinus tachycardia. Ventricular rate of 100 bpm. [place] normal. Intervals normal. No acute ischemic changes appreciated. [] Radiology/Procedures: Radiology/Procedures: [facility] [address] [place] [address] IMAGING REPORT Signed PATIENT: CONY WHITTINGTON ACCOUNT: [id number] : 1960 LOCATION: ER AGE: 59 SEX: M EXAM STATUS: PRE ER ORD. PHYSICIAN: TOY SAUER DO REASON: AMS PROCEDURE: CHEST AP ONLY INDICATION: Reason: AMS / Spl. Instructions: / History: COMPARISON: October 25, 2019 FINDINGS: Single view of chest obtained. Degenerative changes of the right greater than left shoulder. Cardiac silhouette is unremarkable. A definite focal region of airspace consolidation is not seen IMPRESSION: * No definite focal airspace consolidation. Electronically signed by: Kapil Duval MD (05/08/2020 7:56 PM) [id number] DICTATED and SIGNED BY: KAPIL DUVAL MD DATE: 05/08/20 195 [facility] [address] [place] [address] IMAGING REPORT Signed PATIENT: CONY WHITTINGTON ACCOUNT: [id number] : 1960 LOCATION: ER AGE: 59 SEX: M EXAM STATUS: REG ER ORD. PHYSICIAN: TOY SAUER DO REASON: AMS, etoh, possible fall PROCEDURE: CT HEAD AND CERVICAL SPINE WO EXAM: CT head and cervical spine without contrast INDICATION: Altered mental status, alcohol, possible fall COMPARISON: CT head 03/24/2018 TECHNIQUE: Axial CT imaging through the head and cervical spine without intravenous contrast. Sagittal and coronal reformats were obtained. One or more of the following individualized dose reduction techniques were utilized for this examination: 1. Automated exposure control 2. Adjustment of the mA and/or kV according to patient size 3. Use of iterative reconstruction technique. FINDINGS: CT head: No intracranial hemorrhage, acute infarct, or mass lesion. Ventricles and sulci are moderately enlarged. There is mild periventricular white matter hypoattenuation. There are bifrontal and biparietal wan holes. The scalp is normal. Globes and orbits are intact. Paranasal sinuses and mastoid air cells are clear. CT cervical spine: No acute fracture. There is 2 mm anterolisthesis of C4 on C5, 2 mm anterolisthesis of C5 on C6, and C6 on C7. The craniocervical junction and atlantoaxial interval are maintained. There are degenerative changes at C1-C2. Moderate disc space narrowing throughout the cervical spine with anterior osteophytes at multiple levels. There is severe facet arthrosis on the left at C3-C4 and C4-C5. Multilevel uncovertebral joint proliferation. There is at least moderate bilateral foraminal narrowing at C4-C5, C5-C6, and C6-C7 and on the left at C3-C4. Disc-osteophyte complexes are seen at multiple levels with probable at least mild canal narrowing. Prevertebral soft tissues normal. There are calcifications in the carotid bifurcation. Mild emphysema in the lung apices. IMPRESSION: 1. No acute intracranial abnormality. 2. Moderate volume loss and mild white matter disease. 3. No acute osseous abnormality of the cervical spine. 4. Multilevel degenerative disc disease and facet arthrosis with foraminal and likely canal narrowing at multiple levels. Electronically signed by: Nova Roberson MD (05/08/2020 8:39 PM) [id number] DICTATED and SIGNED BY: NOVA ROBERSON MD DATE: 05/08/202038 [] Course & Med Decision Making: Course & Med Decision Making Pertinent Labs and Imaging studies reviewed. (See chart for details) [] Patient is a pleasantly intoxicated 59-year-old male who presents via EMS for being found down at a local bus stop. Upon arrival he is alert and oriented x3. Does have slurred speech however but no focal neurologic deficits are appreciated. Advanced imaging of the head neck was obtained without acute traumatic abnormality. Laboratory analysis grossly unremarkable. Patient was monitored in the emergency department. He showed no signs of clinical deterioration. He is requesting discharge home. He has been ambulatory the emergency department and tolerated p.o. without any assistance. Patient will be provided a cab pass at home. This time he does appear to be clinically sober. Return precautions discussed and understood. Counseled on alcohol cessation. Stable for discharge home. Ginny Disclaimer: Ginny Disclaimer: This electronic medical record was generated, in whole or in part, using a voice recognition dictation system. Departure Departure Impression: Primary Impression: Alcohol intoxication Qualified Codes: F10.929 - Alcohol use, unspecified with intoxication, unspecified Disposition: HOME, SELF-CARE Condition: STABLE Referrals: NO PCP (PCP) Patient Instructions: Alcohol Intoxication, [id number] Additional Instructions: Please follow with your primary care physician in the next 2 to 3 days. TOY SAUER DO May 08, 2020 19:33
--- NOTE | 2020-05-08 19:59 | RAD ---
INDICATION: Reason: AMS / Spl. Instructions: / History: COMPARISON: October 25, 2019 FINDINGS: Single view of chest obtained. Degenerative changes of the right greater than left shoulder. Cardiac silhouette is unremarkable. A definite focal region of airspace consolidation is not seen IMPRESSION: * No definite focal airspace consolidation. Electronically signed by: Shawn Liu MD (05/08/2020 7:56 PM) [id number]
[2020-05-08 20:03] LABS: BASO # 0.1 x10^3/uL (0.0-0.2); BASO % 1 % (0-3); EOS # 0.1 x10^3/uL (0.0-0.7); EOS % 1 % (0-3); HEMATOCRIT 39.6 % (39.0-53.0); HEMOGLOBIN 13.7 g/dL (13.0-17.5); LYMPH % 35 % (24-48); MEAN CORPUSCULAR HEMOGLOBIN 35 pg (25-35); MEAN CORPUSCULAR HGB CONC 34 g/dL (31-37); MEAN CORPUSCULAR VOLUME 100 fL (79-100); MONO # 0.6 x10^3/uL (0.0-1.1); MONO % 7 % (0-9); NEUT # 4.8 x10^3/uL (1.8-7.7); NEUT % 56 % (31-73); PLATELET COUNT 318 x10^3/uL (140-400); RED BLOOD COUNT 3.95 x10^6/uL (4.30-5.70); RED CELL DISTRIBUTION WIDTH 13.4 % (11.5-14.5); WHITE BLOOD COUNT 8.6 x10^3/uL (4.0-11.0)
[2020-05-08 20:08] LABS: CALCIUM 9.1 mg/dL (8.5-10.1); CREATININE 1.4 mg/dL (0.7-1.3); POTASSIUM 3.7 mmol/L (3.5-5.1)
[2020-05-08 20:14] LABS: ALBUMIN 3.7 g/dL (3.4-5.0); ALBUMIN/GLOBULIN RATIO 0.9 (1.0-1.7); MAGNESIUM 1.9 mg/dL (1.8-2.4); TOTAL BILIRUBIN 0.3 mg/dL (0.2-1.0)
--- NOTE | 2020-05-08 20:42 | RAD ---
EXAM: CT head and cervical spine without contrast INDICATION: Altered mental status, alcohol, possible fall COMPARISON: CT head 03/24/2018 TECHNIQUE: Axial CT imaging through the head and cervical spine without intravenous contrast. Sagittal and coronal reformats were obtained. One or more of the following individualized dose reduction techniques were utilized for this examination: 1. Automated exposure control 2. Adjustment of the mA and/or kV according to patient size 3. Use of iterative reconstruction technique. FINDINGS: CT head: No intracranial hemorrhage, acute infarct, or mass lesion. Ventricles and sulci are moderately enlarged. There is mild periventricular white matter hypoattenuation. There are bifrontal and biparietal wan holes. The scalp is normal. Globes and orbits are intact. Paranasal sinuses and mastoid air cells are clear. CT cervical spine: No acute fracture. There is 2 mm anterolisthesis of C4 on C5, 2 mm anterolisthesis of C5 on C6, and C6 on C7. The craniocervical junction and atlantoaxial interval are maintained. There are degenerative changes at C1-C2. Moderate disc space narrowing throughout the cervical spine with anterior osteophytes at multiple levels. There is severe facet arthrosis on the left at C3-C4 and C4-C5. Multilevel uncovertebral joint proliferation. There is at least moderate bilateral foraminal narrowing at C4-C5, C5-C6, and C6-C7 and on the left at C3-C4. Disc-osteophyte complexes are seen at multiple levels with probable at least mild canal narrowing. Prevertebral soft tissues normal. There are calcifications in the carotid bifurcation. Mild emphysema in the lung apices. IMPRESSION: 1. No acute intracranial abnormality. 2. Moderate volume loss and mild white matter disease. 3. No acute osseous abnormality of the cervical spine. 4. Multilevel degenerative disc disease and facet arthrosis with foraminal and likely canal narrowing at multiple levels. Electronically signed by: Nova Roberson MD (05/08/2020 8:39 PM) [id number]
[2020-05-08 21:21] VITALS: BP 109/62
== END 2020-05-08 22:08 | disposition home or self-care (01) ==
LOC: ER 19:20
DX: F10.129 Alcohol abuse with intoxication, unspecified (principal); Y90.9 Presence of alcohol in blood, level not specified; R51.9 Headache, unspecified; M54.2 Cervicalgia; R41.82 Altered mental status, unspecified; J44.9 Chronic obstructive pulmonary disease, unspecified; I10 Essential (primary) hypertension; Z87.820 Personal history of traumatic brain injury; F32.9 Major depressive disorder, single episode, unspecified; F17.200 Nicotine dependence, unspecified, uncomplicated
CPT/HCPCS: 36415; 70450; 71045; 72125; 80053; 82550; 83690; 83735; 85025; 96360; 99285; J7030